=== PATIENT | female | born 1955 | race Caucasian/White ===

== ENCOUNTER → 2017-11-08 | Outpatient (CLI) | payer OTHER | LOC: COL.VAS 13:08 | DX: R06.02 Shortness of breath (principal); F17.200 Nicotine dependence, unspecified, uncomplicated ==

== ENCOUNTER 2017-12-17 06:17 | Day surgery (SDC) | payer OTHER ==
[~2017-12-17] VITALS: Ht 170.2 cm; Wt 151.6 kg
[2017-12-17] MEDS ORDERED: ZANTAC 150150 MG PO (07:28)
[2017-12-17] MEDS ORDERED: LIPITOR 80MG80 MG PO (07:28)
[2017-12-17] MEDS ORDERED: TIAZAC180 MG PO (07:29)
[2017-12-17] MEDS ORDERED: VITAMIN D 50,1.25 MG PO (07:29)
[2017-12-17] MEDS ORDERED: HYZAAR 50-12.1 UDTAB PO (07:30)
[2017-12-17] MEDS ORDERED: COUMADIN 5MG5 MG/TAB PO (07:31)
[2017-12-17] MEDS ORDERED: ATIVAN 1MG T1 MG/TAB PO (07:32)
[2017-12-17] MEDS ORDERED: VITAMIN C500 MG PO (07:32)
[2017-12-17] MEDS ORDERED: ZYRTEC 10MG10 MG PO (07:33)
[2017-12-17] MEDS ORDERED: ACIPHEX20 MG PO (07:33)
[2017-12-17] MEDS ORDERED: FLONASEALLERGY NS (07:34)
[2017-12-17] MEDS ORDERED: SYNTHROID0.05 MG/TA PO (07:34)
[2017-12-17] MEDS ORDERED: PROVENTIL0.09 MG/A1 IH (07:35)
[2017-12-17 07:53] VITALS: BP 121/82; PULSE 80; TEMP 98.5
== END 2017-12-17 10:31 | disposition home or self-care (01) ==
LOC: COL.CAR 06:17
DX: I47.2 Ventricular tachycardia (principal); I48.0 Paroxysmal atrial fibrillation; G47.33 Obstructive sleep apnea (adult) (pediatric); F17.210 Nicotine dependence, cigarettes, uncomplicated; I45.10 Unspecified right bundle-branch block; E78.5 Hyperlipidemia, unspecified; I10 Essential (primary) hypertension; R06.02 Shortness of breath; I49.9 Cardiac arrhythmia, unspecified; Z88.6 Allergy status to analgesic agent; Z88.5 Allergy status to narcotic agent; Z79.01 Long term (current) use of anticoagulants; Z82.49 Family history of ischemic heart disease and other diseases of the circulatory system

== ENCOUNTER 2018-02-01 00:34 | Inpatient (IN) | payer OTHER ==
[~2018-02-01] VITALS: Ht 170.2 cm; Wt 152.0 kg
[2018-02-01] VITALS (422 sets, daily range): BP systolic 103–121; BP diastolic 48–99; PULSE 77–152; TEMP 97.5–98.5; O2SAT 85–98
[~2018-02-01 00:34] MED LIST: ACIPHEX20 MG PO; ATIVAN 1MG T1 MG/TAB PO; COUMADIN 1010 MG/TAB PO; FLONASEALLERGY NS; HYZAAR 50-12.1 UDTAB PO; LIPITOR 80MG80 MG PO; PROVENTIL0.09 MG/A1 IH; SYNTHROID0.05 MG/TA PO; TIAZAC180 MG PO; VITAMIN C500 MG PO; VITAMIN D 50,1.25 MG PO; ZANTAC 150150 MG PO; ZYRTEC 10MG10 MG PO
[2018-02-01] MEDS ORDERED: WELLBUTRIN XL150 MG PO (01:40)
[2018-02-01] MEDS ORDERED: SYNTHROID0.075 MG/T PO (01:52)
[2018-02-01] MEDS ORDERED: TYLENOL 500MG500 MG PO (01:57)
[2018-02-01 06:05] LABS: BASO # 0.1 (0.0-0.2); BASO % 0.6 % (0.0-2.0); EOS # 0.2 (0.0-0.7); EOS % 1.9 % (0-4.0); GRAN # 5.8 (1.4-6.5); GRAN % 57.7 % (42.2-75.2); HEMATOCRIT 43.9 % (37.0-47.0); HEMOGLOBIN 14.4 g/dl (12.5-16.0); LYMPH # 3.1 (1.2-3.4); LYMPH % 30.7 % (20.0-51.0); MEAN CELL VOLUME 89 fl (80.0-100.0); MEAN CORPUSCULAR HEMOGLOBIN 29 pg (27.0-31.0); MEAN CORPUSCULAR HGB CONC 33 g/dl (33.0-37.0); MEAN PLATELET VOLUME 9.3 fl (7.4-10.4); MONO # 0.9 (0.1-0.6); MONO % 8.8 % (1.7-9.3); PLATELET COUNT 232 K/mm3 (130-400); RED BLOOD COUNT 4.91 M/mm3 (4.10-5.30); REDCELL DISTRIBUTION WIDTH-CV 13.8 % (11.5-14.5)
[2018-02-01] MEDS ORDERED: COUMADIN 77.5 MG/TAB PO (06:17)
[2018-02-01 06:22] LABS: ANION GAP 13 mmol/L (7-16); BLOOD UREA NITROGEN 13 mg/dL (7-17); CALCIUM 9.6 mg/dL (8.4-10.2); CARBON DIOXIDE 28 mmol/L (22-30); CHLORIDE 105 mmol/L (98-107); CREATININE, serum 0.72 mg/dL (0.52-1.25); GLUCOSE 113 mg/dL (74-106); SODIUM 146 mmol/L (137-145)
[2018-02-01 06:33] LABS: TROPONIN-I < 0.012 ng/mL (0.000-0.034)
[2018-02-02 03:14] VITALS: BP 134/73; PULSE 65; TEMP 97.6
[2018-02-02 07:28] LABS: INR 3.1 (0.8-3.0); PROTHROMBIN TIME 35.2 SECONDS (9.7-12.8)
[2018-02-02 07:53] VITALS: BP 120/68; PULSE 72; TEMP 97.5
[2018-02-02 12:24] VITALS: BP 108/60; PULSE 70; TEMP 97.4
[2018-02-02] MEDS ORDERED: MULTAQ400 MG PO (12:55)
[2018-02-02] MEDS ORDERED: LEVOXYL0.15 MG PO (12:57)
[2018-02-02 15:50] VITALS: BP 122/80; PULSE 70; TEMP 98.1
== END 2018-02-02 17:30 | disposition home or self-care (01) | DRG 309 ==
LOC: ICU 00:34 → MEDICAL 01:09 → ICU 01:09 → MEDICAL 01:10 → ICU 01:10 → MEDICAL 12:56
PROVIDERS: Nurse Practitioner
PROC: 5A2204Z Restoration of Cardiac Rhythm, Single (ICD-10-PCS; principal; 2018-02-01)
DX: I48.0 Paroxysmal atrial fibrillation (principal); Z68.43 Body mass index [BMI] 50.0-59.9, adult; J96.11 Chronic respiratory failure with hypoxia; I10 Essential (primary) hypertension; J44.9 Chronic obstructive pulmonary disease, unspecified; Z79.01 Long term (current) use of anticoagulants; Z87.891 Personal history of nicotine dependence; G47.33 Obstructive sleep apnea (adult) (pediatric); E66.01 Morbid (severe) obesity due to excess calories
CPT/HCPCS: OP; 99223-AI; 99233-AI; 99239; G0378; G0379; J2704; J7050

== ENCOUNTER 2018-02-13 11:46 | Emergency (ER) | payer OTHER ==
[~2018-02-13] VITALS: Ht 172.7 cm; Wt 150.0 kg
[~2018-02-13 11:46] MED LIST changes: +COUMADIN 77.5 MG/TAB PO; +LEVOXYL0.15 MG PO; +MULTAQ400 MG PO; +SYNTHROID0.075 MG/T PO; +TYLENOL 500MG500 MG PO; +WELLBUTRIN XL150 MG PO
[2018-02-13 11:47] VITALS: TEMP 98.3
[2018-02-13] MEDS ORDERED: COUMADIN 1010 MG/TAB PO (12:17)
[2018-02-13] MEDS ORDERED: COUMADIN 77.5 MG/TAB PO (12:19)
[2018-02-13 12:28] LABS: BASO # 0.1 (0.0-0.2); BASO % 0.8 % (0.0-2.0); EOS # 0.2 (0.0-0.7); EOS % 2.9 % (0-4.0); GRAN # 4.5 (1.4-6.5); GRAN % 59.8 % (42.2-75.2); HEMATOCRIT 40.5 % (37.0-47.0); HEMOGLOBIN 13.4 g/dl (12.5-16.0); LYMPH # 2.1 (1.2-3.4); LYMPH % 27.4 % (20.0-51.0); MEAN CELL VOLUME 89 fl (80.0-100.0); MEAN CORPUSCULAR HEMOGLOBIN 29 pg (27.0-31.0); MEAN CORPUSCULAR HGB CONC 33 g/dl (33.0-37.0); MEAN PLATELET VOLUME 9.6 fl (7.4-10.4); MONO # 0.7 (0.1-0.6); PLATELET COUNT 227 K/mm3 (130-400); RED BLOOD COUNT 4.57 M/mm3 (4.10-5.30); REDCELL DISTRIBUTION WIDTH-CV 13.2 % (11.5-14.5)
[2018-02-13 12:40] LABS: ALANINE AMINOTRANSFERASE 48 U/L (9-52); ALBUMIN 4.1 gm/dL (3.5-5.0); ALKALINE PHOSPHATASE 86 U/L (50-136); ANION GAP 13 mmol/L (7-16); AST,SGOT 38 U/L (15-37); BILIRUBIN,TOTAL 1.2 mg/dL (0.0-1.0); BLOOD UREA NITROGEN 12 mg/dL (7-17); CALCIUM 9.5 mg/dL (8.4-10.2); CARBON DIOXIDE 27 mmol/L (22-30); CHLORIDE 103 mmol/L (98-107); CREATININE, serum 0.72 mg/dL (0.52-1.25); GLUCOSE 147 mg/dL (74-106); POTASSIUM 3.5 mmol/L (3.4-5.0); SODIUM 142 mmol/L (137-145); TOTAL PROTEIN 7.4 gm/dL (6.4-8.2)
[2018-02-13 12:50] LABS: TROPONIN-I < 0.012 ng/mL (0.000-0.034)
[2018-02-13 12:58] LABS: COLLECTION METHOD CLEAN CATCH
[2018-02-13 13:05] LABS: PH 6 (5-8); SQUAMOUS EPITHELIAL 0-2 /hpf; URINE APPEARANCE Clear; URINE BACTERIA None Seen /hpf; URINE BILIRUBIN Negative (NEGATIVE); URINE BLOOD Negative (NEGATIVE); URINE COLOR Yellow; URINE GLUCOSE Negative (NEGATIVE); URINE KETONE Negative (NEGATIVE); URINE LEUKOCYTE ESTERASE Negative (NEGATIVE); URINE NITRATE Negative (NEGATIVE); URINE PROTEIN(semi-quant) Negative (NEGATIVE); URINE RBC 0-2 /hpf; URINE UROBILINOGEN Negative (NEGATIVE)
[2018-02-13 13:07] LABS: INR 2.3 (0.8-3.0); PROTHROMBIN TIME 26.2 SECONDS (9.7-12.8)
[2018-02-13 14:22] LABS: TSH w REFLEX 4.28 uIU/mL (0.465-4.680)
[2018-02-13 14:47] VITALS: BP 107/50; PULSE 65
== END 2018-02-13 14:48 | disposition home or self-care (01) ==
LOC: COL.ER 11:46
PROVIDERS: Emergency Medicine
DX: I48.91 Unspecified atrial fibrillation (principal); J44.9 Chronic obstructive pulmonary disease, unspecified; Z79.01 Long term (current) use of anticoagulants

== ENCOUNTER 2018-04-12 17:40 | Emergency (ER) | payer OTHER ==
[~2018-04-12] VITALS: Ht 172.7 cm; Wt 152.3 kg
[2018-04-12 17:45] VITALS: TEMP 98.9
[2018-04-12 18:04] LABS: BASO % 0.4 % (0.0-2.0); EOS # 0.3 (0.0-0.7); EOS % 2.6 % (0-4.0); GRAN # 6.7 (1.4-6.5); GRAN % 63.9 % (42.2-75.2); HEMOGLOBIN 14.6 g/dl (12.5-16.0); LYMPH # 2.8 (1.2-3.4); LYMPH % 26.3 % (20.0-51.0); MEAN CELL VOLUME 86 fl (80.0-100.0); MEAN CORPUSCULAR HEMOGLOBIN 29 pg (27.0-31.0); MEAN CORPUSCULAR HGB CONC 34 g/dl (33.0-37.0); MEAN PLATELET VOLUME 9.3 fl (7.4-10.4); MONO # 0.7 (0.1-0.6); MONO % 6.7 % (1.7-9.3); PLATELET COUNT 236 K/mm3 (130-400); RED BLOOD COUNT 5.03 M/mm3 (4.10-5.30); REDCELL DISTRIBUTION WIDTH-CV 13.1 % (11.5-14.5)
[2018-04-12 18:08] LABS: INR 1.6 (0.8-3.0); PROTHROMBIN TIME 18.4 SECONDS (9.7-12.8)
[2018-04-12 18:11] LABS: PARTIAL THROMBOPLASTIN TIME 47.7 SECONDS (26.0-37.0)
[2018-04-12 18:21] LABS: ALANINE AMINOTRANSFERASE 38 U/L (9-52); ALBUMIN 4.3 gm/dL (3.5-5.0); ALKALINE PHOSPHATASE 94 U/L (50-136); ANION GAP 12 mmol/L (7-16); AST,SGOT 46 U/L (15-37); BLOOD UREA NITROGEN 12 mg/dL (7-17); CALCIUM 9.7 mg/dL (8.4-10.2); CARBON DIOXIDE 27 mmol/L (22-30); CHLORIDE 101 mmol/L (98-107); CREATININE, serum 0.71 mg/dL (0.52-1.25); GLUCOSE 109 mg/dL (74-106); POTASSIUM 3.7 mmol/L (3.4-5.0); SODIUM 141 mmol/L (137-145); TOTAL PROTEIN 7.6 gm/dL (6.4-8.2)
[2018-04-12 18:40] LABS: TROPONIN-I < 0.012 ng/mL (0.000-0.034)
[2018-04-12 22:10] VITALS: BP 128/87; PULSE 122
== END 2018-04-12 22:00 | disposition short-term general hospital (02) ==
LOC: COL.ER 17:40
PROVIDERS: Family Medicine
DX: I48.91 Unspecified atrial fibrillation (principal); Z79.51 Long term (current) use of inhaled steroids; Z79.02 Long term (current) use of antithrombotics/antiplatelets
CPT/HCPCS: J7030

== ENCOUNTER 2018-09-05 17:54 | Inpatient (IN) | payer OTHER ==
[~2018-09-05] VITALS: Ht 172.7 cm; Wt 152.0 kg
[2018-09-05] VITALS (82 sets, daily range): BP systolic 130; BP diastolic 102; PULSE 135; TEMP 98; O2SAT 92–96
[2018-09-05 18:27] LABS: BASO # 0.1 (0.0-0.2); BASO % 0.6 % (0.0-2.0); EOS # 0.2 (0.0-0.7); GRAN # 6.1 (1.4-6.5); HEMATOCRIT 45.2 % (37.0-47.0); LYMPH # 2.4 (1.2-3.4); LYMPH % 24.9 % (20.0-51.0); MEAN CELL VOLUME 88 fl (80.0-100.0); MEAN CORPUSCULAR HEMOGLOBIN 29 pg (27.0-31.0); MEAN CORPUSCULAR HGB CONC 33 g/dl (33.0-37.0); MEAN PLATELET VOLUME 9.4 fl (7.4-10.4); MONO # 0.7 (0.1-0.6); MONO % 7.3 % (1.7-9.3); PLATELET COUNT 227 K/mm3 (130-400); RED BLOOD COUNT 5.12 M/mm3 (4.10-5.30)
[2018-09-05 18:39] LABS: ALANINE AMINOTRANSFERASE 32 U/L (9-52); ALBUMIN 4.3 gm/dL (3.5-5.0); ALKALINE PHOSPHATASE 106 U/L (50-136); ANION GAP 7 mmol/L (7-16); AST,SGOT 32 U/L (15-37); BILIRUBIN,TOTAL 0.9 mg/dL (0.0-1.0); BLOOD UREA NITROGEN 10 mg/dL (7-17); CALCIUM 9.5 mg/dL (8.4-10.2); CARBON DIOXIDE 32 mmol/L (22-30); CHLORIDE 105 mmol/L (98-107); CREATININE, serum 0.77 mg/dL (0.52-1.25); GLUCOSE 145 mg/dL (74-106); POTASSIUM 3.9 mmol/L (3.4-5.0); SODIUM 144 mmol/L (137-145); TOTAL PROTEIN 7.5 gm/dL (6.4-8.2)
[2018-09-05 18:44] LABS: INR 4.2 (0.8-3.0)
[2018-09-05 18:47] LABS: PROTHROMBIN TIME 47.4 SECONDS (9.7-12.8)
[2018-09-05 18:54] LABS: TROPONIN-I < 0.012 ng/mL (0.000-0.034)
[2018-09-05] MEDS ORDERED: COUMADIN 77.5 MG/TAB PO (18:58)
[2018-09-05] MEDS ORDERED: COUMADIN 5MG5 MG/TAB PO (18:59)
--- NOTE | 2018-09-05 21:13 | NUR ---
Pt admitted to ICU bed 7 from ED at this time. Pt arrived via stretcher and placed on monitoring analyst upon arrival to room. Vitals stable. Ihsan Carson APRN, notified of Pt admission to unit.
[2018-09-05] MEDS ORDERED: SYNTHROID 0.10.15 MG PO (23:39)
[2018-09-05] MEDS ORDERED: TRIAM OI 15 0.025 TOP (23:42)
[2018-09-05] MEDS ORDERED: VOLTAREN GEL 1%1 TU TP (23:43)
[2018-09-06] VITALS (200 sets, daily range): BP systolic 105–160; BP diastolic 54–79; PULSE 60–81; TEMP 97.6–98.7; O2SAT 90–100
--- NOTE | 2018-09-06 00:46 | NUR ---
Pt noted to have increase in PVC et PAC after 15 minutes of decreased cardizem gtt dosage.
--- NOTE | 2018-09-06 00:55 | NUR ---
Admission assessment complete at this time. Plan of care reviewed at bedside with patient. Additional time taken to address any other needs or concerns. Will continue to monitor. Vitals stable.
--- NOTE | 2018-09-06 05:15 | NUR ---
Received report from CAREY Allen in ICU. Patient transferred from ICU to room 342 via wheelchair at 0435. Patient ambulated from wheelchair to bed with standby assist, gait steady. Patient is A&O x 4. VSS. Tele maintained. Denies any pain at this time. Patient had been wearing her CPAP machine while in ICU states that she feels she is up for the morning and doesn't want to wear it anymore tonight. INT to right antecubital. Denies any concerns or needs. Bed is in a low position with call light in reach.
[2018-09-06 06:46] LABS: BASO # 0.1 (0.0-0.2); BASO % 0.6 % (0.0-2.0); EOS # 0.2 (0.0-0.7); EOS % 2.3 % (0-4.0); GRAN # 5.8 (1.4-6.5); GRAN % 60.6 % (42.2-75.2); HEMATOCRIT 40.4 % (37.0-47.0); HEMOGLOBIN 13.3 g/dl (12.5-16.0); LYMPH # 2.7 (1.2-3.4); LYMPH % 27.6 % (20.0-51.0); MEAN CELL VOLUME 88 fl (80.0-100.0); MEAN CORPUSCULAR HEMOGLOBIN 29 pg (27.0-31.0); MEAN CORPUSCULAR HGB CONC 33 g/dl (33.0-37.0); MEAN PLATELET VOLUME 9.2 fl (7.4-10.4); MONO # 0.8 (0.1-0.6); MONO % 8.6 % (1.7-9.3); PLATELET COUNT 216 K/mm3 (130-400); RED BLOOD COUNT 4.57 M/mm3 (4.10-5.30); REDCELL DISTRIBUTION WIDTH-CV 13.4 % (11.5-14.5)
[2018-09-06 06:54] LABS: CALCIUM 9.2 mg/dL (8.4-10.2); CREATININE, serum 0.63 mg/dL (0.52-1.25); POTASSIUM 3.8 mmol/L (3.4-5.0)
[2018-09-06 07:09] LABS: INR 3.1 (0.8-3.0); PROTHROMBIN TIME 35.7 SECONDS (9.7-12.8)
--- NOTE | 2018-09-06 07:23 | NUR ---
Bedside report from CAREY Smith. Pt sitting up in bed HOB at 90*, eating breakfast. TELE in place. Pt states she has severe arthritic pain in hands and wrists, she takes tylenol ES at home, and multaq at home- will follow up with hospitalist. Pt A&O, pleasant, no acute distress. Denies dizziness.
--- NOTE | 2018-09-06 08:40 | NUR ---
Pt called concerned about her heart, "feels like it's about to jump out of my chest," and it felt the same as it did when she was on the phone with her sister when this all started yesterday. Pt amb to BR independently, reached for doorway to steady herself. See VS. Tele showed run of irregularity.
--- NOTE | 2018-09-06 11:18 | NUR ---
Initial visit; Patient was receptive to Haul Cane Brakeman visit and offering her comfort and God's blessings.
--- NOTE | 2018-09-06 11:31 | NUR ---
SW attended clinical rounding and met with patient to discuss discharge planning. Patient is independent and lives at home with her who she is caregiver for. Patients PCP is Dr Ras Solis and she obtains her medications on . Patient has o2 at home. There are no anticipated discharge needs at this time.
[2018-09-06] MEDS ORDERED: COUMADIN 77.5 MG/TAB PO (12:35)
--- NOTE | 2018-09-06 14:10 | NUR ---
Discharge instructions reviewed with pt and family.
--- NOTE | 2018-09-06 14:25 | NUR ---
Printed Pt health summary, discharge summary, and home med list and reviewed with pt with son present. Stressed importance of f/u appts, pt states she will re-schedule her cardiology appt. Stressed importance of obtaining labs prior to PCP appt. Pt states she has 5 mg coumadin at home to take 7.5 mg as ordered. Belongings gathered by pt and family, including cell phone and necklace and glasses in place. Pt transported via by THOMAS Morris for ride home. Pt denied questions. INT DC'd.
== END 2018-09-06 14:29 | disposition home or self-care (01) | DRG 309 ==
LOC: COL.ER 17:54 → ICU 19:21 → SURG 19:21
PROVIDERS: Emergency Medicine; Nurse Practitioner; ADMIT Internal Medicine
DX: I48.0 Paroxysmal atrial fibrillation (principal); Z68.43 Body mass index [BMI] 50.0-59.9, adult; J44.9 Chronic obstructive pulmonary disease, unspecified; E66.01 Morbid (severe) obesity due to excess calories; E78.5 Hyperlipidemia, unspecified; I10 Essential (primary) hypertension; Z79.01 Long term (current) use of anticoagulants; Z87.891 Personal history of nicotine dependence; G47.33 Obstructive sleep apnea (adult) (pediatric)
CPT/HCPCS: J7030

== ENCOUNTER 2018-11-11 18:22 | Emergency (ER) | payer OTHER ==
[~2018-11-11] VITALS: Ht 172.7 cm; Wt 152.3 kg
[~2018-11-11 18:22] MED LIST changes: +COUMADIN 5MG5 MG/TAB PO; +SYNTHROID 0.10.15 MG PO; +TRIAM OI 15 0.025 TOP; +VOLTAREN GEL 1%1 TU TP
[2018-11-11 19:00] VITALS: TEMP 98.2
[2018-11-11] MEDS ORDERED: SYNTHROID0.175 MG PO (19:35)
[2018-11-11] MEDS ORDERED: TIAZAC240 MG PO (19:36)
[2018-11-11 19:39] LABS: BASO # 0.1 (0.0-0.2); BASO % 0.5 % (0.0-2.0); EOS # 0.2 (0.0-0.7); EOS % 1.9 % (0-4.0); GRAN % 64.6 % (42.2-75.2); HEMATOCRIT 43.2 % (37.0-47.0); HEMOGLOBIN 14.4 g/dl (12.5-16.0); LYMPH # 2.7 (1.2-3.4); LYMPH % 25.1 % (20.0-51.0); MEAN CELL VOLUME 87 fl (80.0-100.0); MEAN CORPUSCULAR HEMOGLOBIN 29 pg (27.0-31.0); MEAN CORPUSCULAR HGB CONC 33 g/dl (33.0-37.0); MEAN PLATELET VOLUME 9.1 fl (7.4-10.4); MONO # 0.8 (0.1-0.6); MONO % 7.7 % (1.7-9.3); PLATELET COUNT 242 K/mm3 (130-400); RED BLOOD COUNT 4.99 M/mm3 (4.10-5.30); REDCELL DISTRIBUTION WIDTH-CV 13.4 % (11.5-14.5)
[2018-11-11 19:49] LABS: ALANINE AMINOTRANSFERASE 40 U/L (9-52); ALBUMIN 4.3 gm/dL (3.5-5.0); ALKALINE PHOSPHATASE 103 U/L (50-136); ANION GAP 8 mmol/L (7-16); AST,SGOT 33 U/L (15-37); BLOOD UREA NITROGEN 13 mg/dL (7-17); CALCIUM 9.6 mg/dL (8.4-10.2); CARBON DIOXIDE 27 mmol/L (22-30); CHLORIDE 104 mmol/L (98-107); CREATININE, serum 0.69 mg/dL (0.52-1.25); GLUCOSE 110 mg/dL (74-106); MAGNESIUM 2.1 mg/dL (1.6-2.3); POTASSIUM 3.8 mmol/L (3.4-5.0); SODIUM 140 mmol/L (137-145); TOTAL PROTEIN 7.5 gm/dL (6.4-8.2)
[2018-11-11 20:00] LABS: TROPONIN-I < 0.012 ng/mL (0.000-0.035)
[2018-11-11 20:16] LABS: INR 2.7 (0.8-3.0); PROTHROMBIN TIME 30.9 SECONDS (9.7-12.8)
[2018-11-11 20:35] VITALS: BP 118/64; PULSE 86
== END 2018-11-11 20:35 | disposition home or self-care (01) ==
LOC: COL.ER 18:22
PROVIDERS: Emergency Medicine
DX: I48.0 Paroxysmal atrial fibrillation (principal); I10 Essential (primary) hypertension; E66.9 Obesity, unspecified; J44.9 Chronic obstructive pulmonary disease, unspecified; Z79.01 Long term (current) use of anticoagulants

== ENCOUNTER 2018-11-18 14:54 | Emergency (ER) | payer OTHER ==
[~2018-11-18] VITALS: Ht 172.7 cm; Wt 155.5 kg
[~2018-11-18 14:54] MED LIST changes: +SYNTHROID0.175 MG PO; +TIAZAC240 MG PO
[2018-11-18 14:58] VITALS: TEMP 98.7
[2018-11-18 15:28] LABS: BASO # 0.1 (0.0-0.2); BASO % 0.6 % (0.0-2.0); EOS # 0.2 (0.0-0.7); GRAN # 6.9 (1.4-6.5); GRAN % 65.8 % (42.2-75.2); HEMOGLOBIN 15.1 g/dl (12.5-16.0); LYMPH # 2.5 (1.2-3.4); LYMPH % 23.4 % (20.0-51.0); MEAN CELL VOLUME 88 fl (80.0-100.0); MEAN CORPUSCULAR HEMOGLOBIN 29 pg (27.0-31.0); MEAN CORPUSCULAR HGB CONC 34 g/dl (33.0-37.0); MEAN PLATELET VOLUME 9.6 fl (7.4-10.4); MONO # 0.8 (0.1-0.6); MONO % 7.9 % (1.7-9.3); PLATELET COUNT 258 K/mm3 (130-400); RED BLOOD COUNT 5.14 M/mm3 (4.10-5.30); REDCELL DISTRIBUTION WIDTH-CV 13.5 % (11.5-14.5)
[2018-11-18 15:30] LABS: ALANINE AMINOTRANSFERASE 35 U/L (9-52); ALBUMIN 4.5 gm/dL (3.5-5.0); ALKALINE PHOSPHATASE 119 U/L (50-136); ANION GAP 9 mmol/L (7-16); AST,SGOT 43 U/L (15-37); BILIRUBIN,TOTAL 1.4 mg/dL (0.0-1.0); BLOOD UREA NITROGEN 13 mg/dL (7-17); CALCIUM 9.9 mg/dL (8.4-10.2); CARBON DIOXIDE 29 mmol/L (22-30); CHLORIDE 105 mmol/L (98-107); CREATININE, serum 0.83 mg/dL (0.52-1.25); GLUCOSE 124 mg/dL (74-106); INR 2.7 (0.8-3.0); POTASSIUM 3.5 mmol/L (3.4-5.0); PROTHROMBIN TIME 30.5 SECONDS (9.7-12.8); SODIUM 144 mmol/L (137-145)
[2018-11-18 15:47] LABS: TROPONIN-I < 0.012 ng/mL (0.000-0.035)
[2018-11-18 17:52] VITALS: BP 131/61; PULSE 87
== END 2018-11-18 17:52 | disposition home or self-care (01) ==
LOC: COL.ER 14:54
PROVIDERS: Family Medicine
DX: I48.91 Unspecified atrial fibrillation (principal); I48.92 Unspecified atrial flutter; Z79.01 Long term (current) use of anticoagulants; K52.9 Noninfective gastroenteritis and colitis, unspecified; Z79.51 Long term (current) use of inhaled steroids
CPT/HCPCS: J2060

== ENCOUNTER 2018-11-19 11:07 | Inpatient (IN) | payer OTHER ==
[~2018-11-19] VITALS: Ht 172.7 cm; Wt 138.2 kg
[2018-11-22 08:50] LABS: HEMATOCRIT 41.1 % (37.0-47.0); HEMOGLOBIN 13.8 g/dl (12.5-16.0); MEAN CELL VOLUME 88 fl (80.0-100.0); MEAN CORPUSCULAR HEMOGLOBIN 30 pg (27.0-31.0); MEAN CORPUSCULAR HGB CONC 34 g/dl (33.0-37.0); MEAN PLATELET VOLUME 9.5 fl (7.4-10.4); PLATELET COUNT 241 K/mm3 (130-400); RED BLOOD COUNT 4.68 M/mm3 (4.10-5.30); REDCELL DISTRIBUTION WIDTH-CV 13.5 % (11.5-14.5)
[2018-11-22 08:53] LABS: INR 2.5 (0.8-3.0); PROTHROMBIN TIME 28.4 SECONDS (9.7-12.8)
[2018-11-22 08:55] LABS: ALBUMIN 4.5 gm/dL (3.5-5.0); BILIRUBIN,TOTAL 1.2 mg/dL (0.0-1.0); CALCIUM 9.9 mg/dL (8.4-10.2); CREATININE, serum 0.8 mg/dL (0.52-1.25); MAGNESIUM 1.9 mg/dL (1.6-2.3); POTASSIUM 4.1 mmol/L (3.4-5.0); TOTAL PROTEIN 7.7 gm/dL (6.4-8.2)
[2018-11-22 09:23] VITALS: BP 125/57; PULSE 93; TEMP 97.8
--- NOTE | 2018-11-22 09:55 | NUR ---
Admission assessment completed, alert/oriented, vital signs stable, heart irregular/ A.fib on tele rated controlled in the 70's, EKG done and Qtc WNL, denies any chest pain or palpitations, lungs CTA/ no resp.difficulty noted, distal pulses are palpable, home meds reconciled, IV started to right AC, aware of patients arrival, she is independent and dneies other needs at this time, will admnister first dose of Sotalol
--- NOTE | 2018-11-22 10:42 | NUR ---
SW met with the patient to discuss discharge plan. The patient lives in [place] with her , Ulices. She reports independence with ADLs and does not use any DME. The patient's PCP is Dr. Ras Solis and she receives her medications through [facility]. She reports no difficulties obtaining her meds. The patient does not have advanced directives and she was not interested in completing them at this time. The patient plans to return home with her upon discharge. No additional needs at this time.
[2018-11-22 14:03] VITALS: BP 112/55; PULSE 58; TEMP 97.6
[2018-11-22 20:00] VITALS: BP 102/44; PULSE 54; TEMP 97.6
--- NOTE | 2018-11-22 21:20 | NUR ---
PT AMBULATES IN ROOM, AND IS INDEPENDENT. PT WEARS CPA TO BED, HOB ELEVATED TO 60 DEGREE ANGLE. PT HAS PAIN IN HANDS THAT IS SHARP AND ACHING RATED AT A 8/10 FROM ARTHITIS. PT WAS GIVEN TYLENOL FOR PAIN. PT HAS NO FURTHER NEEDS CALL LIGHT WITHIN REACH.
[2018-11-23] VITALS (7 sets, daily range): BP systolic 90–120; BP diastolic 40–63; PULSE 49–61; TEMP 97.5–98.2
--- NOTE | 2018-11-23 03:48 | NUR ---
UNEVENTFUL NIGHT. PT SLEEPING/RESTING WITH CPAP ON, RESP EVEN AND UNLABORED, AND NO S/S OF PAIN OR DISCOMFORT. CALL LIGHT WITHIN REACH. EARLIER IN SHIFT PT WAS CONCERNED DUE TO NOT GETTING HER COUMADIN. CALL DR. MANZANARES CARDIOLIGIST. DR. MANZANARES ADVISED THAT IT WILL NOT MAKE A DIFFERENT IF SHE DID NOT GET IT THIS EVENING OR TOMORROW MORNING AND NOT TO BE CONCERNED WITH IT NOW. ADVISED PT OF WHAT DR. MANZANARES ADVISED.
--- NOTE | 2018-11-23 09:25 | NUR ---
Patient resting in bed this AM. Telemetry on with SR BBB. A rate of 60 this AM. Patient is very concerned as her pulse and blood pressure are very low for her. She is not having any s/s related to low pressure/pulse. Dr. Batista called to address pulse/blood pressure prior to giving Sotalol this AM per patient request
[2018-11-23 10:25] LABS: BASO # 0.1 (0.0-0.2); BASO % 0.8 % (0.0-2.0); EOS # 0.2 (0.0-0.7); EOS % 3.3 % (0-4.0); GRAN # 3.8 (1.4-6.5); GRAN % 57.8 % (42.2-75.2); HEMATOCRIT 40.6 % (37.0-47.0); LYMPH # 2.1 (1.2-3.4); LYMPH % 31.1 % (20.0-51.0); MEAN CELL VOLUME 89 fl (80.0-100.0); MEAN CORPUSCULAR HEMOGLOBIN 29 pg (27.0-31.0); MEAN CORPUSCULAR HGB CONC 32 g/dl (33.0-37.0); MEAN PLATELET VOLUME 9.9 fl (7.4-10.4); MONO # 0.5 (0.1-0.6); MONO % 6.8 % (1.7-9.3); PLATELET COUNT 215 K/mm3 (130-400); RED BLOOD COUNT 4.54 M/mm3 (4.10-5.30); REDCELL DISTRIBUTION WIDTH-CV 13.6 % (11.5-14.5)
[2018-11-23 10:30] LABS: INR 2.4 (0.8-3.0)
[2018-11-23 10:46] LABS: CALCIUM 9.5 mg/dL (8.4-10.2); CREATININE, serum 0.69 mg/dL (0.52-1.25); MAGNESIUM 1.9 mg/dL (1.6-2.3); POTASSIUM 3.8 mmol/L (3.4-5.0)
--- NOTE | 2018-11-23 14:30 | NUR ---
Patient c/o arthritis in hand causing pain. Tylenol 650 mg given for discomfort. No other needs at this time
--- NOTE | 2018-11-23 18:25 | NUR ---
Patient remains on tele. No other concerns. Hands continue to hurt; giving Tylenol PRN
--- NOTE | 2018-11-23 19:47 | NUR ---
PT HAS BEEN AMBULATING IN ROOM. HAS BEEN UP TO BATHROOM AND BACK TO BED. PT HAS PAIN IN HANDS RATED AT 5/10. NO FURTHER NEEDS, CALL LIGHT WITHIN REACH.
--- NOTE | 2018-11-24 02:01 | NUR ---
GAVE PT TYLENOL FOR PAIN IN HANDS RATED AT AN 8/10. PT ALSO RECEIVED ATIVAN TO HELP WITH SLEEP. PT ADVISED THAT DR. CASTELAN STATED THAT IT WAS OKAY THAT HER PULSE WAS BETWEEN HIGH 40S AND LOW 50S. NO OTHER NEEDS CALL LIGHT WITHIN REACH.
[2018-11-24 03:59] VITALS: BP 125/52; PULSE 47
--- NOTE | 2018-11-24 05:11 | NUR ---
PT SLEEP/RESTING WITH CPAP ON. PT HAD PAIN IN HANDS THAT WOKE HER UP BUT AFTER GETTING TYLENOL AND ATIVAN, SHE IS NOW SLEEPING/RESTING WELL. DENIES PAIN OR DISCOMFORT AND RESP ARE EVEN AND UNLABORED. CALL LIGHT WITHIN REACH.
--- NOTE | 2018-11-24 05:19 | NUR ---
TELEY CALLED AND ADVISED THAT PT'S HEART RATE WENT DOWN TO 38 AND THEN BACK UP TO 45.
[2018-11-24 07:44] VITALS: BP 112/60; PULSE 58; TEMP 97.4
--- NOTE | 2018-11-24 09:25 | NUR ---
PATIENT ASSESSMENT COMPETED. BREAKFAST COMPLETE. SHE DENIES PAIN OR OTHER CONCERNS AT THIS TIME.
[2018-11-24 10:58] LABS: BASO # 0.1 (0.0-0.2); BASO % 0.7 % (0.0-2.0); EOS # 0.2 (0.0-0.7); EOS % 3.1 % (0-4.0); GRAN # 4.5 (1.4-6.5); GRAN % 59.6 % (42.2-75.2); HEMATOCRIT 41.9 % (37.0-47.0); HEMOGLOBIN 13.9 g/dl (12.5-16.0); LYMPH # 2.1 (1.2-3.4); LYMPH % 27.8 % (20.0-51.0); MEAN CELL VOLUME 88 fl (80.0-100.0); MEAN CORPUSCULAR HEMOGLOBIN 29 pg (27.0-31.0); MEAN CORPUSCULAR HGB CONC 33 g/dl (33.0-37.0); MEAN PLATELET VOLUME 9.8 fl (7.4-10.4); MONO # 0.7 (0.1-0.6); MONO % 8.5 % (1.7-9.3); PLATELET COUNT 214 K/mm3 (130-400); RED BLOOD COUNT 4.78 M/mm3 (4.10-5.30); REDCELL DISTRIBUTION WIDTH-CV 13.5 % (11.5-14.5)
--- NOTE | 2018-11-24 11:00 | NUR ---
PATIENT IV REMOVED FOR HER TO GET IN THE SHOWER. SHE TOLERATES WELL AND CATHETER IS INTACT. SHE IS INDEPENDENT WITH THE SHOWER.
[2018-11-24] MEDS ORDERED: BETAPACE 80MG80 MG PO (11:04)
[2018-11-24 11:08] LABS: INR 1.7 (0.8-3.0); PROTHROMBIN TIME 19.7 SECONDS (9.7-12.8)
[2018-11-24 11:15] LABS: CALCIUM 9.7 mg/dL (8.4-10.2); CREATININE, serum 0.69 mg/dL (0.52-1.25); MAGNESIUM 1.9 mg/dL (1.6-2.3); POTASSIUM 3.6 mmol/L (3.4-5.0)
--- NOTE | 2018-11-24 12:10 | NUR ---
PATIENT DISCHARGE INFORMATION REVIEWED WITH PATIENT. SHE DENIES OTHER NEEDS. ONE MONTH PRESCRIPTION FOR SOTOLAL WITH GIVEN ALONG WITH ONE SENT TO [facility]. HOME PRESCRIPTIONS WERE SENT HOME WITH PATIENT. FRIEND HERE TO OLERICULTURE TEACHER PATIENT DISCHARGED VIA WHEELCHAIR.
== END 2018-11-24 12:20 | disposition home or self-care (01) | DRG 310 ==
LOC: MEDICAL 11-22 08:15
PROVIDERS: Nurse Practitioner; ADMIT Internal Medicine Cardiovascular Disease
DX: I48.0 Paroxysmal atrial fibrillation (principal); J44.9 Chronic obstructive pulmonary disease, unspecified; I10 Essential (primary) hypertension; E78.5 Hyperlipidemia, unspecified; G47.33 Obstructive sleep apnea (adult) (pediatric)

== ENCOUNTER 2019-07-12 03:40 | Inpatient (IN) | payer OTHER ==
[~2019-07-12] VITALS: Ht 170.2 cm; Wt 150.0 kg
[~2019-07-12 03:40] MED LIST changes: +BETAPACE 80MG80 MG PO
[2019-07-12 04:04] LABS: BASO % 0.5 % (0.0-2.0); EOS # 0.3 (0.0-0.7); GRAN % 59.7 % (42.2-75.2); HEMATOCRIT 45.5 % (37.0-47.0); HEMOGLOBIN 15.3 g/dl (12.5-16.0); LYMPH # 2.4 (1.2-3.4); LYMPH % 28.3 % (20.0-51.0); MEAN CELL VOLUME 89 fl (80.0-100.0); MEAN CORPUSCULAR HEMOGLOBIN 30 pg (27.0-31.0); MEAN CORPUSCULAR HGB CONC 34 g/dl (33.0-37.0); MEAN PLATELET VOLUME 9.3 fl (7.4-10.4); MONO # 0.7 (0.1-0.6); MONO % 8.4 % (1.7-9.3); PLATELET COUNT 213 K/mm3 (130-400); RED BLOOD COUNT 5.12 M/mm3 (4.10-5.30); REDCELL DISTRIBUTION WIDTH-CV 13.1 % (11.5-14.5)
[2019-07-12 04:10] LABS: PROTHROMBIN TIME 24.4 SECONDS (9.7-12.8)
[2019-07-12 04:16] LABS: ALANINE AMINOTRANSFERASE 33 U/L (9-52); ALBUMIN 4.4 gm/dL (3.5-5.0); ALKALINE PHOSPHATASE 103 U/L (50-136); ANION GAP 8 mmol/L (7-16); AST,SGOT 34 U/L (15-37); BILIRUBIN,TOTAL 1.3 mg/dL (0.0-1.0); BLOOD UREA NITROGEN 10 mg/dL (7-17); CALCIUM 9.9 mg/dL (8.4-10.2); CARBON DIOXIDE 27 mmol/L (22-30); CHLORIDE 105 mmol/L (98-107); CREATININE, serum 0.59 (0.52-1.25); GLUCOSE 145 mg/dL (74-106); SODIUM 141 mmol/L (137-145); TOTAL PROTEIN 7.6 gm/dL (6.4-8.2)
[2019-07-12 04:20] LABS: MAGNESIUM 1.8 mg/dL (1.6-2.3)
[2019-07-12 04:27] LABS: TROPONIN-I < 0.012 ng/mL (0.000-0.035)
[2019-07-12] MEDS ORDERED: FLONASEALLERGY NS (05:48)
[2019-07-12] MEDS ORDERED: COUMADIN 5MG5 MG/TAB PO ×2 (05:50→05:51)
[2019-07-12] MEDS ORDERED: SYNTHROID0.175 MG PO (05:53)
[2019-07-12] MEDS ORDERED: TYLENOL 8 HR PO (05:55)
[2019-07-12] MEDS ORDERED: FLEXERIL 1010 MG/TAB PO (05:56)
--- NOTE | 2019-07-12 06:15 | NUR ---
PT ADMITTED FROM ED WITH AFIB RVR. PT TRANSFERED TO BED. PT IS AXOX3. PT IS AFIB ON TELE. PT HAS DILT DRIP AT 10ML/HR AND NS AT 125. PT ORIENTED TO ROOM AND FLOOR. PT INSTRUCTED TO CALL [facility] ANY CP OR SOB. WILL CONTINUE TO MONITOR.
[2019-07-12 06:48] LABS: TSH w REFLEX 2.91 uIU/mL (0.465-4.680)
--- NOTE | 2019-07-12 07:30 | NUR ---
PT A&O X4. PT DENIES PAIN. NO EDEMA IN EXTREMITIES.
--- NOTE | 2019-07-12 09:20 | NUR ---
AT APPROXIMATELY PT CONVERTED TO SR. VSS.
--- NOTE | 2019-07-12 11:16 | NUR ---
Met with patient about DC plan. Patient plans to return home with her DTR in-law as care support (Sarah Cole) Patient reports that she is the primary care support for her . Patient reports that use of a cane, cpap with 02 con at 2 liters at night service from [facility]. DTR to transport patient home. [place] Hernandez Melissa [place] [facility] [place] Patient obtains medications at [facility]. Patient denies the need for home health or additional care concerns.
[2019-07-12 12:00] VITALS: PULSE 68
[2019-07-12] MEDS ORDERED: BETAPACE 120MG120 MG PO (13:08)
[2019-07-12 16:00] VITALS: BP 149/67; PULSE 77; TEMP 98
--- NOTE | 2019-07-12 16:35 | NUR ---
PT DISCHARGED. PT ESCORTED OUT ICU VIA WC WITH SON AND PERSONAL BELONGINGS. PT ASSISTED INTO POV.
== END 2019-07-12 16:35 | disposition home or self-care (01) | DRG 309 ==
LOC: COL.ER 03:40 → IMCU 05:08
PROVIDERS: Emergency Medicine; Nurse Practitioner Family; ADMIT Student in an Organized Health Care Education/Training Program
DX: I48.0 Paroxysmal atrial fibrillation (principal); Z68.42 Body mass index [BMI] 45.0-49.9, adult; I10 Essential (primary) hypertension; E78.5 Hyperlipidemia, unspecified; E66.01 Morbid (severe) obesity due to excess calories; G47.33 Obstructive sleep apnea (adult) (pediatric); J44.9 Chronic obstructive pulmonary disease, unspecified; E03.9 Hypothyroidism, unspecified; Z79.01 Long term (current) use of anticoagulants; Z90.49 Acquired absence of other specified parts of digestive tract
CPT/HCPCS: 99222-AI; J7030

== ENCOUNTER 2020-07-16 23:00 | Observation (INO) | payer OTHER ==
[~2020-07-16] VITALS: Ht 152.4 cm; Wt 319.0 kg
[~2020-07-16 23:00] MED LIST changes: +BETAPACE 120MG120 MG PO; +FLEXERIL 1010 MG/TAB PO; +TYLENOL 8 HR PO
[2020-07-16 23:20] LABS: BASO % 0.4 % (0.0-2.0); EOS # 0.3 (0.0-0.7); EOS % 2.6 % (0-4.0); GRAN # 5.5 (1.4-6.5); GRAN % 58.1 % (42.2-75.2); HEMATOCRIT 45.1 % (37.0-47.0); HEMOGLOBIN 15.3 g/dl (12.5-16.0); LYMPH # 2.8 (1.2-3.4); MEAN CELL VOLUME 88 fl (80.0-100.0); MEAN CORPUSCULAR HEMOGLOBIN 30 pg (27.0-31.0); MEAN CORPUSCULAR HGB CONC 34 g/dl (33.0-37.0); MEAN PLATELET VOLUME 9.7 fl (7.4-10.4); MONO # 0.8 (0.1-0.6); MONO % 8.6 % (1.7-9.3); PLATELET COUNT 236 K/mm3 (130-400); RED BLOOD COUNT 5.13 M/mm3 (4.10-5.30); REDCELL DISTRIBUTION WIDTH-CV 12.9 % (11.5-14.5)
[2020-07-16 23:28] LABS: ALANINE AMINOTRANSFERASE 28 U/L (4-34); ALBUMIN 4.7 gm/dL (3.5-5.0); ALKALINE PHOSPHATASE 117 U/L (50-136); ANION GAP 9 mmol/L (7-16); AST,SGOT 30 U/L (15-37); BILIRUBIN,TOTAL 1.1 mg/dL (0.0-1.0); BLOOD UREA NITROGEN 12 mg/dL (7-17); CALCIUM 10.2 mg/dL (8.4-10.2); CARBON DIOXIDE 29 mmol/L (22-30); CHLORIDE 102 mmol/L (98-107); CREATININE, serum 0.65 (0.52-1.25); GLUCOSE 121 mg/dL (74-106); MAGNESIUM 1.9 mg/dL (1.6-2.3); POTASSIUM 3.9 mmol/L (3.4-5.0); SODIUM 141 mmol/L (137-145)
[2020-07-16 23:37] LABS: INR 2.4 (0.8-3.0)
[2020-07-17] VITALS (58 sets, daily range): BP systolic 140–144; BP diastolic 78–87; PULSE 55–58; TEMP 97.5; O2SAT 96–100
[2020-07-17 00:26] LABS: TROPONIN-I < 0.012 ng/mL (0.000-0.035)
--- NOTE | 2020-07-17 08:00 | NUR ---
Admit from ED via stretcher with RN at side. Cardizem infusing at 5mg/hr. Stands and transfers to bed with SBA. Ambulates to toilet without assistance. Monitors applied and orient to room. Wallet sent to [facility] with Renae Portillo RN, HS.
--- NOTE | 2020-07-17 08:12 | NUR ---
Notified by MT that patient had converted to SB, confirmed with EKG.
--- NOTE | 2020-07-17 09:50 | NUR ---
Hospitalist and Cardiology here for rounds, both agree patient can discharge.
[2020-07-17] MEDS ORDERED: CALCIUM CITRAT200 M2 PO (10:37)
[2020-07-17] MEDS ORDERED: VITAMIN D31000 I1 PO (10:38)
[2020-07-17] MEDS ORDERED: BETAPACE 120MG120 MG PO (10:45)
[2020-07-17] MEDS ORDERED: ELIQUIS 5MG PO (10:45)
--- NOTE | 2020-07-17 12:55 | NUR ---
Discharged via wheelchair to POV with friend driving. All belongings sent with patient, including wallet that went to safe.
== END 2020-07-17 12:55 | disposition home or self-care (01) ==
LOC: COL.ER 23:00 → ICU 07-17 03:46
PROVIDERS: Emergency Medicine; ADMIT Student in an Organized Health Care Education/Training Program
DX: I48.91 Unspecified atrial fibrillation (principal); I10 Essential (primary) hypertension; E78.5 Hyperlipidemia, unspecified; G47.33 Obstructive sleep apnea (adult) (pediatric); E66.01 Morbid (severe) obesity due to excess calories; J44.9 Chronic obstructive pulmonary disease, unspecified; E03.9 Hypothyroidism, unspecified; K21.9 Gastro-esophageal reflux disease without esophagitis; I48.0 Paroxysmal atrial fibrillation; I47.2 Ventricular tachycardia; Z90.49 Acquired absence of other specified parts of digestive tract; Z79.01 Long term (current) use of anticoagulants; Z79.52 Long term (current) use of systemic steroids; Z88.5 Allergy status to narcotic agent; Z88.8 Allergy status to other drugs, medicaments and biological substances; Z87.891 Personal history of nicotine dependence
CPT/HCPCS: G0378; J7030

== ENCOUNTER 2020-09-05 22:13 | Emergency (ER) | payer MEDICARE, OTHER ==
[~2020-09-05] VITALS: Ht 172.7 cm; Wt 150.0 kg
[~2020-09-05 22:13] MED LIST changes: +CALCIUM CITRAT200 M2 PO; +ELIQUIS 5MG PO; +VITAMIN D31000 I1 PO
[2020-09-05] MEDS ORDERED: HCTZ12.5TAB PO (22:25)
[2020-09-05] MEDS ORDERED: COZAAR 50MG50 MG/TAB PO (22:25)
[2020-09-05] MEDS ORDERED: ROBAXIN 50500 MG/TAB PO (22:27)
[2020-09-05 22:31] LABS: BASO # 0.1 (0.0-0.2); BASO % 0.5 % (0.0-2.0); EOS # 0.3 (0.0-0.7); EOS % 3.1 % (0-4.0); GRAN # 6.6 (1.4-6.5); GRAN % 66.3 % (42.2-75.2); HEMATOCRIT 43.7 % (37.0-47.0); HEMOGLOBIN 14.5 g/dl (12.5-16.0); LYMPH # 2.1 (1.2-3.4); LYMPH % 21.4 % (20.0-51.0); MEAN CELL VOLUME 90 fl (80.0-100.0); MEAN CORPUSCULAR HEMOGLOBIN 30 pg (27.0-31.0); MEAN CORPUSCULAR HGB CONC 33 g/dl (33.0-37.0); MEAN PLATELET VOLUME 9.4 fl (7.4-10.4); MONO # 0.8 (0.1-0.6); MONO % 8.5 % (1.7-9.3); PLATELET COUNT 221 K/mm3 (130-400); RED BLOOD COUNT 4.88 M/mm3 (4.10-5.30); REDCELL DISTRIBUTION WIDTH-CV 13.2 % (11.5-14.5)
[2020-09-05 22:36] LABS: INR 1.2 (0.8-3.0); PROTHROMBIN TIME 13.4 SECONDS (9.7-12.8)
[2020-09-05 22:38] LABS: PARTIAL THROMBOPLASTIN TIME 39.4 SECONDS (26.0-37.0)
[2020-09-05 22:39] LABS: ALBUMIN 4.5 gm/dL (3.5-5.0); BILIRUBIN,TOTAL 1.4 mg/dL (0.0-1.0); CALCIUM 9.8 mg/dL (8.4-10.2); CREATININE, serum 0.75 (0.52-1.25); POTASSIUM 3.7 mmol/L (3.4-5.0); TOTAL PROTEIN 7.5 gm/dL (6.4-8.2)
[2020-09-06 00:50] VITALS: BP 109/60; PULSE 66
== END 2020-09-06 01:12 | disposition home or self-care (01) ==
LOC: COL.ER 22:13
PROVIDERS: Emergency Medicine
DX: I48.92 Unspecified atrial flutter (principal); R07.89 Other chest pain; I10 Essential (primary) hypertension; E66.01 Morbid (severe) obesity due to excess calories; Z79.01 Long term (current) use of anticoagulants; Z88.6 Allergy status to analgesic agent; Z88.8 Allergy status to other drugs, medicaments and biological substances; Z87.891 Personal history of nicotine dependence
CPT/HCPCS: J2704; J7030

== ENCOUNTER 2021-02-19 02:30 | Emergency (ER) | payer MEDICARE, OTHER ==
[~2021-02-19] VITALS: Ht 172.7 cm; Wt 159.1 kg
[~2021-02-19 02:30] MED LIST changes: +COZAAR 50MG50 MG/TAB PO; +HCTZ12.5TAB PO; +ROBAXIN 50500 MG/TAB PO
[2021-02-19 02:34] VITALS: TEMP 97.9
[2021-02-19 03:33] LABS: COLLECTION METHOD CLEAN CATCH
[2021-02-19 03:39] LABS: BASO % 0.4 % (0.0-2.0); EOS # 0.3 (0.0-0.7); EOS % 3.4 % (0-4.0); GRAN # 5.8 (1.4-6.5); GRAN % 70.5 % (42.2-75.2); HEMATOCRIT 40.8 % (37.0-47.0); HEMOGLOBIN 13.6 g/dl (12.5-16.0); LYMPH # 1.5 (1.2-3.4); LYMPH % 18.6 % (20.0-51.0); MEAN CELL VOLUME 90 fl (80.0-100.0); MEAN CORPUSCULAR HEMOGLOBIN 30 pg (27.0-31.0); MEAN CORPUSCULAR HGB CONC 33 g/dl (33.0-37.0); MONO # 0.6 (0.1-0.6); PLATELET COUNT 172 K/mm3 (130-400); RED BLOOD COUNT 4.56 M/mm3 (4.10-5.30); REDCELL DISTRIBUTION WIDTH-CV 12.9 % (11.5-14.5)
[2021-02-19 03:43] LABS: MUCOUS Present /lpf; PH 5 (5-8); URINE APPEARANCE Hazy; URINE BACTERIA None Seen /hpf; URINE BILIRUBIN Negative (NEGATIVE); URINE BLOOD Negative (NEGATIVE); URINE COLOR Yellow; URINE GLUCOSE Negative (NEGATIVE); URINE KETONE Negative (NEGATIVE); URINE LEUKOCYTE ESTERASE Negative (NEGATIVE); URINE NITRATE Negative (NEGATIVE); URINE PROTEIN(semi-quant) Negative (NEGATIVE); URINE RBC 0-2 /hpf; URINE UROBILINOGEN Negative (NEGATIVE); URINE WBC 0-2 /hpf
[2021-02-19 04:12] LABS: ALBUMIN 3.9 gm/dL (3.5-5.0); BILIRUBIN,TOTAL 1.3 mg/dL (0.0-1.0); CALCIUM 9.4 mg/dL (8.4-10.2); CREATINE KINASE 58 U/L (30-135); CREATININE, serum 0.54 (0.52-1.25); POTASSIUM 3.6 mmol/L (3.4-5.0); TOTAL PROTEIN 6.9 gm/dL (6.4-8.2)
[2021-02-19 04:19] LABS: TROPONIN-I < 0.012 ng/mL (0.000-0.035)
[2021-02-19] MEDS ORDERED: ANTIVERT 25MG25 MG PO (05:14)
[2021-02-19] MEDS ORDERED: ZOFRAN ODT4 MG PO (05:14)
[2021-02-19 06:06] VITALS: BP 149/71; PULSE 66
== END 2021-02-19 06:06 | disposition home or self-care (01) ==
LOC: COL.ER 02:30
PROVIDERS: Emergency Medicine
DX: R42 Dizziness and giddiness (principal); R11.0 Nausea; I48.91 Unspecified atrial fibrillation; Z79.01 Long term (current) use of anticoagulants; Z88.6 Allergy status to analgesic agent

== ENCOUNTER 2021-05-20 23:12 | Observation (INO) | payer MEDICARE, OTHER ==
[~2021-05-20] VITALS: Ht 172.7 cm; Wt 140.0 kg
[~2021-05-20 23:12] MED LIST changes: +ANTIVERT 25MG25 MG PO; +ZOFRAN ODT4 MG PO
[2021-05-20 23:32] LABS: BASO # 0.1 (0.0-0.2); BASO % 0.5 % (0.0-2.0); EOS # 0.3 (0.0-0.7); GRAN # 6.3 (1.4-6.5); GRAN % 63.9 % (42.2-75.2); HEMATOCRIT 42.1 % (37.0-47.0); HEMOGLOBIN 13.9 g/dl (12.5-16.0); LYMPH # 2.5 (1.2-3.4); LYMPH % 24.8 % (20.0-51.0); MEAN CELL VOLUME 88 fl (80.0-100.0); MEAN CORPUSCULAR HEMOGLOBIN 29 pg (27.0-31.0); MEAN CORPUSCULAR HGB CONC 33 g/dl (33.0-37.0); MEAN PLATELET VOLUME 9.9 fl (7.4-10.4); MONO # 0.7 (0.1-0.6); MONO % 7.5 % (1.7-9.3); PLATELET COUNT 203 K/mm3 (130-400); RED BLOOD COUNT 4.77 M/mm3 (4.10-5.30)
[2021-05-20 23:40] LABS: INR 1.2 (0.8-3.0); PROTHROMBIN TIME 13.5 SECONDS (9.7-12.8)
[2021-05-20 23:42] LABS: ALBUMIN 4.3 gm/dL (3.5-5.0); ANION GAP 8 mmol/L (7-16); BLOOD UREA NITROGEN 14 mg/dL (7-17); CARBON DIOXIDE 27 mmol/L (22-30); CHLORIDE 105 mmol/L (98-107); CREATININE, serum 0.61 (0.52-1.25); GLUCOSE 126 mg/dL (74-106); SODIUM 140 mmol/L (137-145); TOTAL PROTEIN 7.5 gm/dL (6.4-8.2)
[2021-05-20 23:43] LABS: ALANINE AMINOTRANSFERASE 27 U/L (4-34); ALKALINE PHOSPHATASE 95 U/L (50-136); AST,SGOT 35 U/L (15-37); BILIRUBIN,TOTAL 1.4 mg/dL (0.0-1.0)
[2021-05-20 23:50] LABS: COLLECTION METHOD CLEAN CATCH
[2021-05-20 23:54] LABS: TROPONIN-I < 0.012 ng/mL (0.000-0.035)
[2021-05-21 00:03] LABS: PH 6 (5-8); URINE APPEARANCE Hazy; URINE BACTERIA None Seen /hpf; URINE BILIRUBIN Negative (NEGATIVE); URINE BLOOD Negative (NEGATIVE); URINE COLOR Straw; URINE GLUCOSE Negative (NEGATIVE); URINE KETONE Negative (NEGATIVE); URINE LEUKOCYTE ESTERASE Negative (NEGATIVE); URINE NITRATE Negative (NEGATIVE); URINE PROTEIN(semi-quant) Negative (NEGATIVE); URINE RBC 0-2 /hpf; URINE UROBILINOGEN Negative (NEGATIVE); URINE WBC 0-2 /hpf
[2021-05-21 01:11] LABS: MAGNESIUM 1.9 mg/dL (1.6-2.3)
[2021-05-21 01:45] LABS: TSH w REFLEX 0.684 uIU/mL (0.350-4.940)
[2021-05-21 03:59] VITALS: BP 144/72; PULSE 85; TEMP 98.3
--- NOTE | 2021-05-21 05:59 | NUR ---
Patient arrived from ER to medical floor around 0145. Alert and oriented x 4, and able to make needs known. Denies having pain and discomfort at this time. Peripheral INT to right AC. Denies SOB and dyspnea. LS CTA. Respirations even and unlabored. Marixa CPAP from home and put in on when she went to bed. HRI. Telemetry in place: A-fib. Capillary refill less than 3 seconds. Non-tenting skin turgor. BSAx4. Abdomen soft and non-tender. 1+ edema BLE. Patient remained NPO while on medical floor, except to medications with sips of water. Voices no questions, needs, or concerns at this time. Resting in bed with call light within reach.
--- NOTE | 2021-05-21 07:00 | NUR ---
Report with CAREY Oliver. Pt resting in bed, denies needs at this time. Call light in reach.
[2021-05-21 07:57] VITALS: BP 130/67; BP 144/100; PULSE 93; TEMP 98.4
--- NOTE | 2021-05-21 09:00 | NUR ---
Assessment complete. 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 Heart rate/rhythm irregular to auscultation. Saline lock IV to right AC without s/s of complications. Physical assessment unremarkable. No further needs reported. Call light in reach.
--- NOTE | 2021-05-21 10:15 | NUR ---
Furnace Brazer and primary hospitalist on unit now and notified of pt's increased heart rate earlier that is now decreased, approx 1 hour after medications given, rate 110's to low 120's.
[2021-05-21 11:38] VITALS: BP 121/98; PULSE 88; TEMP 97.7
--- NOTE | 2021-05-21 15:25 | NUR ---
Pt's heart rate back down in the 80's, fluctuating intermittently into the 120's.
[2021-05-21 15:51] VITALS: BP 114/43; PULSE 75; TEMP 98.7
--- NOTE | 2021-05-21 19:03 | NUR ---
Report to CAREY Oliver. Pt ambulating in room, requesting night medications soon to go to bed. Assisted pt with setting up CPAP machine. No further needs reported. Call light in reach.
[2021-05-21 19:35] VITALS: BP 125/69; PULSE 76; PULSE 83; TEMP 97.9
--- NOTE | 2021-05-21 21:12 | NUR ---
Patient assessed around 193. Alert and oriented x 4, and able to make needs known. Denies having pain and discomfort at this time. Peripheral INT to right AC. Denies SOB and dyspsnea. LS CTA. Respirations even and unlabored. HRI. Telemetry in place. A-fib. States she is not longer feeling the fluttering in her chest. Capillary refill less than 3 seconds. Non-tenting skin turgor. BSAx4. Abdomen soft and non-tender. 1+ edema BLE. Voices no questions, needs, or concerns at this time. Resting in bed with call light within reach.
[2021-05-22 03:56] VITALS: BP 113/77; PULSE 117; TEMP 97.8
--- NOTE | 2021-05-22 05:52 | NUR ---
Patient has been awake on and off during this shift. Received PRN APAP for pain. Patient continues on telemetry monitoring in A-fib, ranging 80s-130s. Denies chest palpitations/fluttering. Resting in bed with call light within reach. CPAP on.
--- NOTE | 2021-05-22 07:00 | NUR ---
Report with CAREY Oliver. Pt ambulating around room, getting ready for day. Sched medications administered. Pt denies further needs. Call light in reach.
[2021-05-22 07:30] VITALS: BP 129/103; PULSE 99; TEMP 97.8
[2021-05-22 07:52] LABS: CALCIUM 9.5 mg/dL (8.4-10.2); CREATININE, serum 0.58 (0.52-1.25)
--- NOTE | 2021-05-22 08:00 | NUR ---
Assessment complete. Pt sitting up in chair, denies pain at this time but reports slight discomfort in hands and requesting Tylenol. Heart rate and rhythm remain irregular and occasionally tachycardic. Saline lock IV to right AC without s/s of complications. No further needs reported. Call light in reach.
[2021-05-22 08:06] LABS: BASO # 0.1 (0.0-0.2); BASO % 0.8 % (0.0-2.0); EOS # 0.3 (0.0-0.7); EOS % 3.4 % (0-4.0); HEMATOCRIT 43.8 % (37.0-47.0); HEMOGLOBIN 14.8 g/dl (12.5-16.0); LYMPH # 2.6 (1.2-3.4); LYMPH % 34.6 % (20.0-51.0); MEAN CELL VOLUME 87 fl (80.0-100.0); MEAN CORPUSCULAR HEMOGLOBIN 30 pg (27.0-31.0); MEAN CORPUSCULAR HGB CONC 34 g/dl (33.0-37.0); MONO # 0.6 (0.1-0.6); MONO % 7.7 % (1.7-9.3); PLATELET COUNT 130 K/mm3 (130-400); RED BLOOD COUNT 5.01 M/mm3 (4.10-5.30); REDCELL DISTRIBUTION WIDTH-CV 13.2 % (11.5-14.5)
--- NOTE | 2021-05-22 10:00 | NUR ---
Tele called to notify nurse of pt converting to sinus rhythm around 0845. Provider notified, will monitor for now and possibly discharge later.
[2021-05-22 12:40] VITALS: BP 96/70; PULSE 61; TEMP 98.4
--- NOTE | 2021-05-22 13:45 | NUR ---
sitting up in chair, bedside shift reprot received from CAREY Keene
--- NOTE | 2021-05-22 13:56 | NUR ---
VIN met with patient to complete intake. 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 Patient states that she does not wish to appoint for contact, but does have a daugther listed Nicole [phone]. Patient states that she does not have a DPOA-HC and does not wish to appoint anyone at this time. Patient states that she does not utilize DME and is independent with ADL's. Patient states that her PCP is Dr. Geo Grey, and obtains meds from [facility], Patient states that her plan is to return to her home up on [place] and has no concerns with doing so. DC Plan: Home/[place]
--- NOTE | 2021-05-22 14:11 | NUR ---
Report with CAREY Shannon. Pt sitting up in chair, asks about IV site change, which will be assessed. No further needs reported. Call light in reach.
--- NOTE | 2021-05-22 14:50 | NUR ---
remains up in chair, heart rate strong and regujlar, lungs CTA, skin wawrm and dry, abdomen obese and bowel sounds present in 4 quads, peripheral pulses present in 4 4 extremities, telemetry in place, INT to right antecubital
--- NOTE | 2021-05-22 15:00 | NUR ---
resting in bed, states her anxiety is out the roof, medicated with scheduled, valium 10mg, also c/o some of nausea and medicated with zofran 4mg
--- NOTE | 2021-05-22 16:18 | NUR ---
RN assisted her with cleaning up and noticed red rash under breasts, was cleaned and then began to have itching, PA notifed
[2021-05-22 16:31] VITALS: BP 119/47; PULSE 60; TEMP 98
--- NOTE | 2021-05-22 18:57 | NUR ---
shift report given to CAREY Aleman
[2021-05-22 20:30] VITALS: BP 129/67; PULSE 71; TEMP 97.6
--- NOTE | 2021-05-22 20:30 | NUR ---
Initial shift assessment done- did request some Tylenol before bed for arthritis type pain to hands/knees, AP regular- Tele- Sinus ,,denies need for a snack tonight- has been sitting up in the chair,, denies palpitations or SOB, VSS
--- NOTE | 2021-05-22 22:15 | NUR ---
Patient called to desk and stated she didnt feel right- went to room, patient sitting on edge of bed, states she just finished the movie she was watching and got up to bathroom and when back to bed almost felt "dizzy", Vitals taken- stable 132/67,63,18,96% RA,, Tele called and no changes to telemetry- remains in Sinus, rate mid fifties-- pt states she is just a little anxious,"I just need to sleep" states she will put her home CPAP on and go to bed- instructed to call she cannot sleep or doesnt feel right--
[2021-05-22 22:30] VITALS: BP 132/67; PULSE 63
[2021-05-23 02:30] VITALS: BP 122/68; PULSE 58; TEMP 97.5
--- NOTE | 2021-05-23 02:45 | NUR ---
Has been sleeping well for past 2-3 hours- no requests, VSS, Up to bathroom, steady on feet, no dizziness. Tele on- low 50,s throughout the night, sinus
[2021-05-23 06:04] LABS: BASO # 0.1 (0.0-0.2); BASO % 0.7 % (0.0-2.0); EOS # 0.3 (0.0-0.7); EOS % 3.9 % (0-4.0); GRAN # 4.3 (1.4-6.5); GRAN % 55.7 % (42.2-75.2); HEMOGLOBIN 13.2 g/dl (12.5-16.0); LYMPH # 2.4 (1.2-3.4); MEAN CELL VOLUME 90 fl (80.0-100.0); MEAN CORPUSCULAR HEMOGLOBIN 29 pg (27.0-31.0); MEAN CORPUSCULAR HGB CONC 32 g/dl (33.0-37.0); MEAN PLATELET VOLUME 10.3 fl (7.4-10.4); MONO # 0.6 (0.1-0.6); MONO % 8.4 % (1.7-9.3); PLATELET COUNT 178 K/mm3 (130-400); RED BLOOD COUNT 4.55 M/mm3 (4.10-5.30)
[2021-05-23 06:25] LABS: CALCIUM 9.3 mg/dL (8.4-10.2); CREATININE, serum 0.59 (0.52-1.25); POTASSIUM 3.7 mmol/L (3.4-5.0)
[2021-05-23 07:40] VITALS: BP 106/52; PULSE 59; TEMP 98.8
--- NOTE | 2021-05-23 07:50 | NUR ---
Shift assessment complete. Pt sitting up in recliner finishing breakfast. Denies pain, SOA, dizziness, or other concerns. Heart RRR. Lungs CTA. A&Ox4. Mild swelling to BLE w/o tenderness. Pt hopeful to go home today. Will continue to monitor.
[2021-05-23] MEDS ORDERED: DESENEX TP (09:49)
--- NOTE | 2021-05-23 10:00 | NUR ---
IV to right AC removed per hospitalist orders.
--- NOTE | 2021-05-23 12:37 | NUR ---
First visit from the air value tester. No needs right now.
[2021-05-23 13:00] VITALS: BP 116/53; PULSE 58; TEMP 98.1
--- NOTE | 2021-05-23 16:00 | NUR ---
Discharge teaching discussed w/pt and all questions answered. Pt escorted out w/all belongings.
== END 2021-05-23 16:00 | disposition home or self-care (01) ==
LOC: COL.ER 23:12 → MEDICAL 05-21 00:27
PROVIDERS: Student in an Organized Health Care Education/Training Program; ADMIT Internal Medicine
DX: I48.0 Paroxysmal atrial fibrillation (principal); I47.2 Ventricular tachycardia; E87.6 Hypokalemia; I10 Essential (primary) hypertension; E78.5 Hyperlipidemia, unspecified; E66.01 Morbid (severe) obesity due to excess calories; G47.33 Obstructive sleep apnea (adult) (pediatric); J44.9 Chronic obstructive pulmonary disease, unspecified; E03.9 Hypothyroidism, unspecified; K21.9 Gastro-esophageal reflux disease without esophagitis; Z79.890 Hormone replacement therapy; Z79.899 Other long term (current) drug therapy; Z87.891 Personal history of nicotine dependence; Z79.01 Long term (current) use of anticoagulants
CPT/HCPCS: 99232-AI; 99239; G0378

== ENCOUNTER 2021-07-26 20:12 | Emergency (ER) | payer MEDICARE, OTHER ==
[~2021-07-26] VITALS: Ht 172.7 cm; Wt 147.3 kg
[~2021-07-26 20:12] MED LIST changes: +DESENEX TP
[2021-07-26 20:21] VITALS: TEMP 98.4
[2021-07-26] MEDS ORDERED: DOXYCYCLINE 10100 MG PO (20:51)
[2021-07-26 21:00] VITALS: BP 125/80; PULSE 82
--- NOTE | 2021-07-27 16:06 | NUR ---
Airplane Fueler contacted patient and left a voicemail.
== END 2021-07-26 21:10 | disposition home or self-care (01) ==
LOC: COL.ER 20:12
DX: I80.3 Phlebitis and thrombophlebitis of lower extremities, unspecified (principal); I48.0 Paroxysmal atrial fibrillation; I10 Essential (primary) hypertension; E66.01 Morbid (severe) obesity due to excess calories; E03.9 Hypothyroidism, unspecified; J44.9 Chronic obstructive pulmonary disease, unspecified; Z68.42 Body mass index [BMI] 45.0-49.9, adult; Z79.02 Long term (current) use of antithrombotics/antiplatelets; Z79.899 Other long term (current) drug therapy; Z79.890 Hormone replacement therapy

== ENCOUNTER 2021-10-06 06:00 | Emergency (ER) | payer MEDICARE, OTHER ==
[~2021-10-06] VITALS: Ht 172.7 cm; Wt 152.3 kg
[~2021-10-06 06:00] MED LIST changes: +DOXYCYCLINE 10100 MG PO
[2021-10-06 06:02] VITALS: TEMP 98
[2021-10-06] MEDS ORDERED: VITAMIN D31000 I1 PO (06:13)
[2021-10-06] MEDS ORDERED: TYLENOL 325MG325 MG PO (06:14)
[2021-10-06] MEDS ORDERED: VITAMIN C500 MG PO (06:14)
[2021-10-06 06:47] LABS: BASO # 0.1 K/mm3 (0.0-0.2); BASO % 0.8 % (0.0-2.0); EOS # 0.3 K/mm3 (0.0-0.7); EOS % 4.4 % (0.0-4.0); GRAN # 4.6 K/mm3 (1.4-6.5); GRAN % 60.5 % (42.2-75.2); HEMATOCRIT 40.4 % (37.0-47.0); HEMOGLOBIN 13.5 g/dl (12.5-16.0); MEAN CELL VOLUME 87 fl (80.0-100.0); MEAN CORPUSCULAR HEMOGLOBIN 29 pg (27-31); MEAN CORPUSCULAR HGB CONC 33 g/dl (33.0-37.0); MONO # 0.6 K/mm3 (0.1-0.6); MONO % 7.9 % (1.7-9.3); PLATELET COUNT 198 K/mm3 (130-400); RED BLOOD COUNT 4.64 M/mm3 (4.10-5.30); REDCELL DISTRIBUTION WIDTH-CV 13.2 % (11.5-14.5)
[2021-10-06 07:10] LABS: ALBUMIN 4.1 gm/dL (3.4-4.8); BILIRUBIN,TOTAL 1.6 mg/dL (0.2-1.2); CALCIUM 9.4 mg/dL (8.4-10.2); CREATININE, serum 0.74 mg/dL (0.57-1.11); POTASSIUM 4.1 mmol/L (3.5-4.5); TOTAL PROTEIN 7.1 gm/dL (6.2-8.1)
[2021-10-06 07:35] LABS: TROPONIN-I 0.013 ng/mL (0.00-0.033)
[2021-10-06 07:40] VITALS: BP 107/65; PULSE 77
== END 2021-10-06 07:40 | disposition home or self-care (01) ==
LOC: COL.ER 06:00
PROVIDERS: Personal Emergency Response Attendant
DX: I48.0 Paroxysmal atrial fibrillation (principal); I10 Essential (primary) hypertension; E78.5 Hyperlipidemia, unspecified; E78.00 Pure hypercholesterolemia, unspecified; K21.9 Gastro-esophageal reflux disease without esophagitis; E03.9 Hypothyroidism, unspecified; J44.9 Chronic obstructive pulmonary disease, unspecified; E66.01 Morbid (severe) obesity due to excess calories; Z68.43 Body mass index [BMI] 50.0-59.9, adult; Z79.01 Long term (current) use of anticoagulants; Z79.890 Hormone replacement therapy; Z79.899 Other long term (current) drug therapy

== ENCOUNTER 2021-10-11 09:33 | Emergency (ER) | payer MEDICARE, OTHER ==
[~2021-10-11] VITALS: Ht 172.7 cm; Wt 154.5 kg
[~2021-10-11 09:33] MED LIST changes: +TYLENOL 325MG325 MG PO
[2021-10-11 09:37] VITALS: TEMP 98.6
[2021-10-11 10:01] LABS: BASO % 0.6 % (0.0-2.0); EOS # 0.3 K/mm3 (0.0-0.7); GRAN % 68.5 % (42.2-75.2); HEMATOCRIT 41.4 % (37.0-47.0); HEMOGLOBIN 13.6 g/dl (12.5-16.0); LYMPH # 1.4 K/mm3 (1.2-3.4); LYMPH % 19.6 % (20.0-51.0); MEAN CELL VOLUME 88 fl (80.0-100.0); MEAN CORPUSCULAR HEMOGLOBIN 29 pg (27-31); MEAN CORPUSCULAR HGB CONC 33 g/dl (33.0-37.0); MEAN PLATELET VOLUME 10.2 fl (7.4-10.4); MONO # 0.5 K/mm3 (0.1-0.6); MONO % 7.2 % (1.7-9.3); PLATELET COUNT 197 K/mm3 (130-400)
[2021-10-11 10:20] LABS: ALANINE AMINOTRANSFERASE 23 U/L (0-55); ALKALINE PHOSPHATASE 98 U/L (40-150); ANION GAP 7 mmol/L (7-16); AST,SGOT 23 U/L (5-34); BILIRUBIN,TOTAL 2.1 mg/dL (0.2-1.2); BLOOD UREA NITROGEN 8 mg/dL (10-20); CALCIUM 9.7 mg/dL (8.4-10.2); CARBON DIOXIDE 29 mmol/L (23-31); CHLORIDE 105 mmol/L (98-107); CREATININE, serum 0.79 mg/dL (0.57-1.11); GLUCOSE 174 mg/dL (70-99); POTASSIUM 3.5 mmol/L (3.5-4.5); SODIUM 141 mmol/L (136-145); TOTAL PROTEIN 7.2 gm/dL (6.2-8.1)
[2021-10-11 10:26] LABS: TROPONIN-I < 0.010 ng/mL (0.00-0.033)
[2021-10-11 10:39] LABS: INR 1.4 (0.8-3.0); PROTHROMBIN TIME 15.7 SECONDS (9.7-12.8)
[2021-10-11 10:42] LABS: PARTIAL THROMBOPLASTIN TIME 38.5 SECONDS (26.0-37.0)
[2021-10-11 11:27] VITALS: BP 160/70; PULSE 80
== END 2021-10-11 11:38 | disposition home or self-care (01) ==
LOC: COL.ER 09:33
PROVIDERS: Emergency Medicine
DX: R00.2 Palpitations (principal); I48.91 Unspecified atrial fibrillation; K21.9 Gastro-esophageal reflux disease without esophagitis; J44.9 Chronic obstructive pulmonary disease, unspecified; I10 Essential (primary) hypertension; E78.5 Hyperlipidemia, unspecified; Z79.01 Long term (current) use of anticoagulants; Z87.891 Personal history of nicotine dependence; Z79.899 Other long term (current) drug therapy; Z79.51 Long term (current) use of inhaled steroids; Z95.818 Presence of other cardiac implants and grafts

== ENCOUNTER 2022-01-31 11:15 | Emergency (ER) | payer MEDICARE, OTHER ==
[~2022-01-31] VITALS: Ht 172.7 cm; Wt 151.8 kg
[2022-01-31 11:15] VITALS: TEMP 98.9
[2022-01-31 11:51] LABS: BASO # 0.1 K/mm3 (0.0-0.2); BASO % 0.9 % (0.0-2.0); EOS # 0.3 K/mm3 (0.0-0.7); EOS % 3.7 % (0.0-4.0); GRAN # 4.4 K/mm3 (1.4-6.5); GRAN % 63.2 % (42.2-75.2); HEMATOCRIT 39.2 % (37.0-47.0); HEMOGLOBIN 12.8 g/dl (12.5-16.0); LYMPH # 1.7 K/mm3 (1.2-3.4); LYMPH % 24.5 % (20.0-51.0); MEAN CELL VOLUME 90 fl (80.0-100.0); MEAN CORPUSCULAR HEMOGLOBIN 29 pg (27-31); MEAN CORPUSCULAR HGB CONC 33 g/dl (33.0-37.0); MONO # 0.5 K/mm3 (0.1-0.6); MONO % 7.6 % (1.7-9.3); PLATELET COUNT 183 K/mm3 (130-400); RED BLOOD COUNT 4.36 M/mm3 (4.10-5.30); REDCELL DISTRIBUTION WIDTH-CV 13.4 % (11.5-14.5)
[2022-01-31 12:30] LABS: ALANINE AMINOTRANSFERASE 25 U/L (0-55); ALBUMIN 3.4 gm/dL (3.4-4.8); ALKALINE PHOSPHATASE 84 U/L (40-150); AST,SGOT 24 U/L (5-34); BILIRUBIN,TOTAL 1.5 mg/dL (0.2-1.2); BLOOD UREA NITROGEN 10 mg/dL (10-20); CALCIUM 9.1 mg/dL (8.4-10.2); CARBON DIOXIDE 27 mmol/L (23-31); CHLORIDE 108 mmol/L (98-107); CREATININE, serum 0.71 mg/dL (0.57-1.11); GLUCOSE 137 mg/dL (70-99); POTASSIUM 3.9 mmol/L (3.5-4.5); SODIUM 143 mmol/L (136-145); TOTAL PROTEIN 6.4 gm/dL (6.2-8.1)
[2022-01-31 12:40] LABS: ANION GAP 8 mmol/L (7-16)
[2022-01-31 12:52] LABS: TROPONIN-I < 0.010 ng/mL (0.00-0.033); TSH w REFLEX 0.557 uIU/mL (0.350-4.940)
[2022-01-31 13:30] VITALS: BP 105/56; PULSE 62
== END 2022-01-31 13:30 | disposition home or self-care (01) ==
LOC: COL.ER 11:15
PROVIDERS: Emergency Medicine
DX: I48.91 Unspecified atrial fibrillation (principal); Z79.01 Long term (current) use of anticoagulants

== ENCOUNTER 2022-04-01 16:48 | Inpatient (IN) | payer MEDICARE, OTHER ==
[~2022-04-01] VITALS: Ht 172.7 cm; Wt 149.8 kg
[2022-04-01] VITALS (171 sets, daily range): BP systolic 164; BP diastolic 85; PULSE 68; TEMP 98.1; O2SAT 94–100
[2022-04-01 17:11] LABS: BASO # 0.1 K/mm3 (0.0-0.2); BASO % 0.6 % (0.0-2.0); EOS # 0.3 K/mm3 (0.0-0.7); EOS % 3.1 % (0.0-4.0); GRAN # 4.6 K/mm3 (1.4-6.5); GRAN % 56.1 % (42.2-75.2); HEMATOCRIT 42.8 % (37.0-47.0); HEMOGLOBIN 14.4 g/dl (12.5-16.0); LYMPH # 2.6 K/mm3 (1.2-3.4); LYMPH % 31.4 % (20.0-51.0); MEAN CELL VOLUME 87 fl (80.0-100.0); MEAN CORPUSCULAR HEMOGLOBIN 29 pg (27-31); MEAN CORPUSCULAR HGB CONC 34 g/dl (33.0-37.0); MEAN PLATELET VOLUME 9.7 fl (7.4-10.4); MONO # 0.7 K/mm3 (0.1-0.6); MONO % 8.7 % (1.7-9.3); PLATELET COUNT 196 K/mm3 (130-400); RED BLOOD COUNT 4.92 M/mm3 (4.10-5.30); REDCELL DISTRIBUTION WIDTH-CV 13.5 % (11.5-14.5)
[2022-04-01 17:25] LABS: ALANINE AMINOTRANSFERASE 25 U/L (0-55); ALKALINE PHOSPHATASE 95 U/L (40-150); ANION GAP 12 mmol/L (7-16); AST,SGOT 22 U/L (5-34); BILIRUBIN,TOTAL 1.5 mg/dL (0.2-1.2); BLOOD UREA NITROGEN 8 mg/dL (10-20); CALCIUM 9.7 mg/dL (8.4-10.2); CARBON DIOXIDE 26 mmol/L (23-31); CHLORIDE 106 mmol/L (98-107); CREATININE, serum 0.69 mg/dL (0.57-1.11); GLUCOSE 119 mg/dL (70-99); POTASSIUM 3.5 mmol/L (3.5-4.5); SODIUM 144 mmol/L (136-145); TOTAL PROTEIN 7.2 gm/dL (6.2-8.1)
[2022-04-01 17:29] LABS: INR 1.1 (0.8-3.0); PROTHROMBIN TIME 12.4 SECONDS (9.7-12.8)
[2022-04-01 17:34] LABS: TROPONIN-I < 0.010 ng/mL (0.00-0.033)
[2022-04-02] VITALS (101 sets, daily range): BP systolic 105–142; BP diastolic 47–65; PULSE 50–58; TEMP 97.6–98.1; O2SAT 96–100
--- NOTE | 2022-04-02 02:10 | NUR ---
TALK TO CAREY HEADING REPAIRER ABOUT TRANSFER OF PATIENT TO HER AREA FOR CONTINUED ADMIT, RN ACCEPTS PATIENT TO ROOM 342. PATIENT IS TRANSFERRED BY WHEEL CHAIR AND ABULATES AROUND EMILY, FREELY
[2022-04-02 06:29] LABS: BASO % 0.4 % (0.0-2.0); EOS # 0.3 K/mm3 (0.0-0.7); EOS % 2.6 % (0.0-4.0); GRAN # 5.9 K/mm3 (1.4-6.5); GRAN % 60.9 % (42.2-75.2); HEMATOCRIT 39.8 % (37.0-47.0); HEMOGLOBIN 13.2 g/dl (12.5-16.0); LYMPH # 2.7 K/mm3 (1.2-3.4); LYMPH % 27.7 % (20.0-51.0); MEAN CELL VOLUME 88 fl (80.0-100.0); MEAN CORPUSCULAR HEMOGLOBIN 29 pg (27-31); MEAN CORPUSCULAR HGB CONC 33 g/dl (33.0-37.0); MEAN PLATELET VOLUME 10.5 fl (7.4-10.4); MONO # 0.8 K/mm3 (0.1-0.6); MONO % 8.2 % (1.7-9.3); PLATELET COUNT 183 K/mm3 (130-400); REDCELL DISTRIBUTION WIDTH-CV 13.6 % (11.5-14.5)
[2022-04-02 06:39] LABS: ALBUMIN 3.6 gm/dL (3.4-4.8); CALCIUM 9.7 mg/dL (8.4-10.2); CREATININE, serum 0.68 mg/dL (0.57-1.11); MAGNESIUM 2.1 mg/dL (1.6-2.6); PHOSPHOROUS 3.1 mg/dL (2.3-4.7); POTASSIUM 4.1 mmol/L (3.5-4.5)
--- NOTE | 2022-04-02 07:58 | NUR ---
Patient sitting up in bed, just finished eating breakfast. A&Ox4. VSS. IV CDI. Reports arthritic pain in knees and hands. Pain medication given as scheduled. Independent in the room. Call light within reach
--- NOTE | 2022-04-02 15:33 | NUR ---
Discharge paperwork reviewed with the patient. Patient verbalized an understanding to follow doctors orders. IV removed, tip intact, gauze and coban applied. Patient takem by wheelchair to awaiting vehicle. No further needs expressed
== END 2022-04-02 15:36 | disposition home or self-care (01) | DRG 309 ==
LOC: COL.ER 16:48 → ICU 17:20 → SURG 04-02 02:23
PROVIDERS: Nurse Practitioner Primary Care; ADMIT Internal Medicine
DX: I48.0 Paroxysmal atrial fibrillation (principal); Z68.42 Body mass index [BMI] 45.0-49.9, adult; E78.5 Hyperlipidemia, unspecified; K21.9 Gastro-esophageal reflux disease without esophagitis; E03.9 Hypothyroidism, unspecified; I10 Essential (primary) hypertension; G47.33 Obstructive sleep apnea (adult) (pediatric); E66.01 Morbid (severe) obesity due to excess calories; J44.9 Chronic obstructive pulmonary disease, unspecified; M19.90 Unspecified osteoarthritis, unspecified site; Z88.8 Allergy status to other drugs, medicaments and biological substances; Z88.5 Allergy status to narcotic agent; Z87.891 Personal history of nicotine dependence; Z79.01 Long term (current) use of anticoagulants; Z86.79 Personal history of other diseases of the circulatory system; Z23 Encounter for immunization
CPT/HCPCS: J3475

== ENCOUNTER 2022-04-04 04:30 | Inpatient (IN) | payer MEDICARE, OTHER ==
[~2022-04-04] VITALS: Ht 172.7 cm; Wt 146.4 kg
[2022-04-04 05:14] LABS: ALANINE AMINOTRANSFERASE 23 U/L (0-55); ALBUMIN 3.8 gm/dL (3.4-4.8); ALKALINE PHOSPHATASE 85 U/L (40-150); ANION GAP 9 mmol/L (7-16); AST,SGOT 24 U/L (5-34); BILIRUBIN,TOTAL 1.8 mg/dL (0.2-1.2); BLOOD UREA NITROGEN 9 mg/dL (10-20); CALCIUM 9.9 mg/dL (8.4-10.2); CARBON DIOXIDE 25 mmol/L (23-31); CHLORIDE 108 mmol/L (98-107); CREATININE, serum 0.71 mg/dL (0.57-1.11); GLUCOSE 119 mg/dL (70-99); POTASSIUM 4.3 mmol/L (3.5-4.5); SODIUM 142 mmol/L (136-145); TOTAL PROTEIN 6.9 gm/dL (6.2-8.1)
[2022-04-04 05:20] LABS: TROPONIN-I < 0.010 ng/mL (0.00-0.033)
[2022-04-04 05:39] LABS: BASO # 0.1 K/mm3 (0.0-0.2); BASO % 0.7 % (0.0-2.0); EOS # 0.2 K/mm3 (0.0-0.7); GRAN % 55.6 % (42.2-75.2); HEMATOCRIT 41.6 % (37.0-47.0); LYMPH # 2.3 K/mm3 (1.2-3.4); LYMPH % 32.2 % (20.0-51.0); MEAN CELL VOLUME 87 fl (80.0-100.0); MEAN CORPUSCULAR HEMOGLOBIN 29 pg (27-31); MEAN CORPUSCULAR HGB CONC 34 g/dl (33.0-37.0); MEAN PLATELET VOLUME 10.2 fl (7.4-10.4); MONO # 0.6 K/mm3 (0.1-0.6); MONO % 8.4 % (1.7-9.3); PLATELET COUNT 169 K/mm3 (130-400); RED BLOOD COUNT 4.76 M/mm3 (4.10-5.30); REDCELL DISTRIBUTION WIDTH-CV 13.4 % (11.5-14.5)
[2022-04-04] MEDS ORDERED: TYLENOL 500MG500 MG PO ×2 (06:11→06:12)
[2022-04-04 06:59] LABS: TSH w REFLEX 0.955 uIU/mL (0.350-4.940)
[2022-04-04 11:44] VITALS: BP 114/52; PULSE 53; TEMP 98.1
[2022-04-04 11:54] VITALS: BP 149/64; PULSE 72; TEMP 97.6
[2022-04-04 16:16] VITALS: BP 108/45; PULSE 56
[2022-04-04 19:48] VITALS: BP 139/59; PULSE 57; TEMP 98.1
[2022-04-05] VITALS (8 sets, daily range): BP systolic 106–169; BP diastolic 45–90; PULSE 48–134; TEMP 97.6–98.2
[2022-04-05 06:39] LABS: BASO # 0.1 K/mm3 (0.0-0.2); BASO % 0.7 % (0.0-2.0); EOS # 0.3 K/mm3 (0.0-0.7); EOS % 3.7 % (0.0-4.0); GRAN # 4.1 K/mm3 (1.4-6.5); GRAN % 55.9 % (42.2-75.2); HEMATOCRIT 39.2 % (37.0-47.0); LYMPH # 2.3 K/mm3 (1.2-3.4); LYMPH % 31.6 % (20.0-51.0); MEAN CELL VOLUME 90 fl (80.0-100.0); MEAN CORPUSCULAR HEMOGLOBIN 30 pg (27-31); MEAN CORPUSCULAR HGB CONC 33 g/dl (33.0-37.0); MEAN PLATELET VOLUME 10.4 fl (7.4-10.4); MONO # 0.6 K/mm3 (0.1-0.6); PLATELET COUNT 149 K/mm3 (130-400); RED BLOOD COUNT 4.38 M/mm3 (4.10-5.30); REDCELL DISTRIBUTION WIDTH-CV 13.5 % (11.5-14.5)
[2022-04-05 07:06] LABS: CALCIUM 9.2 mg/dL (8.4-10.2); CREATININE, serum 0.65 mg/dL (0.57-1.11); POTASSIUM 3.9 mmol/L (3.5-4.5)
--- NOTE | 2022-04-05 09:00 | NUR ---
Patient is resting in chair, alert and oriented x 4, telemetry in place NSR, low heart rate. Assessment completed, no other needs at this time. Call light within reach.
--- NOTE | 2022-04-05 10:35 | NUR ---
VIN met with the patient to discuss discharge plan. The patient lives alone in [place]. Her last month. She states that her son, Manoj, lives in the same apartment complex as her. She reports independence with ADLs and has a cane and CPAP. The patient's states that she sees a male provider at [place] [id number]. She is unsure of his name. She receives her medications from [facility]. The patient does not have a DPOA-HC, but she was interested in obtaining a form. VIN provided. She is has two children: Manoj and Ronny Mandujano (ph#[phone]). The patient plans to return home upon discharge. No additional needs at this time. *Discharge plan: home*
--- NOTE | 2022-04-05 17:51 | NUR ---
Call from critical care, patient started with AFIB RVR, HR 140-155. Patient was on restroom and reported some palpitation and agitation. EKG is ordered. Call placed to Dr. Batista who ordered to continue monitoring and provide dose of amiodaron as scheduled at night.
--- NOTE | 2022-04-05 19:31 | NUR ---
Patient has been unstable. She continues with AFIB HR 130'S report given to night RN.
--- NOTE | 2022-04-06 02:16 | NUR ---
BEGINNING OF SHIFT NOTE: PATIENT UP AMBULATING IN ROOM GETTING CPAP SET UP FOR THE NIGHT. PATIENT C/O PALPITATIONS AND HEART RATE PER TELEMETRY IS 130S-140S. PATIENT ENCOURAGED TO SIT AND REST AND PATIENT IN AGREEMENT CPAP IS SET UP.
[2022-04-06 04:02] VITALS: BP 109/45; PULSE 54; TEMP 97.8
--- NOTE | 2022-04-06 06:10 | NUR ---
END OF SHIFT NOTE: PATIENT RESTED QUIETLY THIS SHIFT. PATIENT REMAINED IN SINUS RHTHYM TO SINUS DEBBY WITH RATES NOTED LOW 50-51 AT TIMES. PATIENT COMPLAINED OF NOT SLEEPING WELL WHICH PATIENT REMARKS IS USUAL FOR HER WHEN SHE IS IN THE HOSPITAL. PATIENT RECEIVED NO PRN MEDICATIONS.
[2022-04-06 06:49] LABS: BASO % 0.6 % (0.0-2.0); EOS # 0.2 K/mm3 (0.0-0.7); EOS % 3.3 % (0.0-4.0); GRAN # 4.5 K/mm3 (1.4-6.5); GRAN % 61.7 % (42.2-75.2); HEMATOCRIT 39.1 % (37.0-47.0); HEMOGLOBIN 12.9 g/dl (12.5-16.0); LYMPH # 1.9 K/mm3 (1.2-3.4); LYMPH % 26.2 % (20.0-51.0); MEAN CELL VOLUME 90 fl (80.0-100.0); MEAN CORPUSCULAR HEMOGLOBIN 30 pg (27-31); MEAN CORPUSCULAR HGB CONC 33 g/dl (33.0-37.0); MEAN PLATELET VOLUME 10.4 fl (7.4-10.4); MONO # 0.6 K/mm3 (0.1-0.6); MONO % 8.1 % (1.7-9.3); PLATELET COUNT 167 K/mm3 (130-400); RED BLOOD COUNT 4.35 M/mm3 (4.10-5.30); REDCELL DISTRIBUTION WIDTH-CV 13.2 % (11.5-14.5)
[2022-04-06 07:05] LABS: CALCIUM 9.3 mg/dL (8.4-10.2); CREATININE, serum 0.65 mg/dL (0.57-1.11); POTASSIUM 3.7 mmol/L (3.5-4.5)
[2022-04-06 07:26] VITALS: BP 128/59; PULSE 62; TEMP 97.8
--- NOTE | 2022-04-06 09:00 | NUR ---
Patient is sitting in the chair, alert and oriented x 4, she is less stressed than yesterday. Her heart rate is WNL, NSR. Complains of some pain in her hands. Telemetry in place, assessment completed, meds provided. No other needs at this time. Call light within reach.
[2022-04-06 11:13] VITALS: BP 129/54; PULSE 64; TEMP 98.6
--- NOTE | 2022-04-06 12:45 | NUR ---
Initial visit; Patient from [place] and states she is glad Staff Nurse Anesthetist came to look in on her. Staff Nurse Anesthetist offered empathy and God's blessings and will keep "Michelle," in her prayers.
[2022-04-06 15:02] VITALS: BP 118/52; PULSE 55; TEMP 97.5
--- NOTE | 2022-04-06 18:23 | NUR ---
Patient heart has been stable along the day. NSR. She just complained of pain in her hands, tylenol provided. Report will be given to night RN.
--- NOTE | 2022-04-06 20:00 | NUR ---
THE PATIENT IS SITTING IN HER RECLINER. SHE DENIES ANY PAIN, JUST SOME BODY ACHES SHE IS ATTRIBUTING TO HER ARTHRITIS. THE PATIENT DOES SOUNDS SLIGHTLY CONGESTED AND IS COMPLAINING OF A HEADACHE, NO FEVER NOTED, HOWEVER, THE PATIENT STATES SHE DOESN'T FEEL LIKE SHE HAS COVID, BUT THINKS IT MAY BE A GOOD IDEA TO TEST AT THIS TIME. AFTER FURTHER ASSESSMENT, IT APPEARS THAT HER RIGHT FOREARM IV IS BAD, THE SITES HAS SOME ERETHYMA WELL TENDERNESS AND SWELLING JUST ABOVE INSERTION SITE. WILL CONTINUE TO MONITOR.
[2022-04-06 20:21] VITALS: BP 160/71; PULSE 73; TEMP 98.4
[2022-04-07 00:05] VITALS: BP 111/40; PULSE 57; TEMP 97.4
[2022-04-07 03:16] VITALS: BP 108/40; BP 108/42; PULSE 61; TEMP 97.9
[2022-04-07 07:38] VITALS: BP 130/45; PULSE 59; TEMP 97.9
--- NOTE | 2022-04-07 08:00 | NUR ---
Patient is sitting in chair, alert and oriented x 4, VSS, telemetry in place, NSR. Denies chest pain. States was not able to sleep. Assessment completed, meds provided. She just had her breakfast. No other needs at this time. Call light within reach.
[2022-04-07] MEDS ORDERED: CORDARONE200 MG/TAB PO ×8 (10:13→11:12)
[2022-04-07 11:18] VITALS: BP 109/45; PULSE 72; TEMP 97.7
--- NOTE | 2022-04-07 11:24 | NUR ---
The patient is to discharge back home today, 04/07. VIN met with the patient to present and review the IM form. The patient verbalized understanding and of agreement to discharge today. She signed the form and VIN provided her with a copy. The patient had no questions or concerns about returning home. No additional needs at this time.
[2022-04-07 15:21] VITALS: BP 126/42; PULSE 69; TEMP 97.7
--- NOTE | 2022-04-07 16:00 | NUR ---
Patient was provided with discharge information. All questions answered. IV access and telemetry discontinued.
== END 2022-04-07 16:00 | disposition home or self-care (01) | DRG 309 ==
LOC: COL.ER 04:30 → MEDICAL 06:11
PROVIDERS: Emergency Medicine Emergency Medical Services; Physician Assistant; Student in an Organized Health Care Education/Training Program; ADMIT Internal Medicine
DX: I48.0 Paroxysmal atrial fibrillation (principal); Z68.42 Body mass index [BMI] 45.0-49.9, adult; G47.33 Obstructive sleep apnea (adult) (pediatric); J44.9 Chronic obstructive pulmonary disease, unspecified; I10 Essential (primary) hypertension; E78.5 Hyperlipidemia, unspecified; M19.90 Unspecified osteoarthritis, unspecified site; K21.9 Gastro-esophageal reflux disease without esophagitis; E03.9 Hypothyroidism, unspecified; E66.9 Obesity, unspecified; Z79.890 Hormone replacement therapy; Z88.5 Allergy status to narcotic agent; Z88.8 Allergy status to other drugs, medicaments and biological substances; Z79.01 Long term (current) use of anticoagulants; Z87.891 Personal history of nicotine dependence; Z23 Encounter for immunization
CPT/HCPCS: J2405; J7030

== ENCOUNTER 2022-04-30 22:20 | Emergency (ER) | payer MEDICARE, OTHER ==
[~2022-04-30] VITALS: Ht 172.7 cm; Wt 149.1 kg
[~2022-04-30 22:20] MED LIST changes: +CORDARONE200 MG/TAB PO
[2022-04-30 22:22] VITALS: TEMP 97.4
[2022-04-30 22:49] LABS: BASO # 0.1 K/mm3 (0.0-0.2); BASO % 0.6 % (0.0-2.0); EOS # 0.3 K/mm3 (0.0-0.7); EOS % 3.6 % (0.0-4.0); GRAN # 4.8 K/mm3 (1.4-6.5); GRAN % 60.9 % (42.2-75.2); HEMATOCRIT 42.3 % (37.0-47.0); HEMOGLOBIN 14.3 g/dl (12.5-16.0); LYMPH # 2.2 K/mm3 (1.2-3.4); LYMPH % 27.8 % (20.0-51.0); MEAN CELL VOLUME 88 fl (80.0-100.0); MEAN CORPUSCULAR HEMOGLOBIN 30 pg (27-31); MEAN CORPUSCULAR HGB CONC 34 g/dl (33.0-37.0); MEAN PLATELET VOLUME 9.8 fl (7.4-10.4); MONO # 0.6 K/mm3 (0.1-0.6); PLATELET COUNT 173 K/mm3 (130-400); RED BLOOD COUNT 4.81 M/mm3 (4.10-5.30); REDCELL DISTRIBUTION WIDTH-CV 13.2 % (11.5-14.5)
[2022-04-30 22:57] LABS: INR 1.3 (0.8-3.0); PROTHROMBIN TIME 14.4 SECONDS (9.7-12.8)
[2022-04-30 22:59] LABS: PARTIAL THROMBOPLASTIN TIME 39.5 SECONDS (26.0-37.0)
[2022-04-30 23:06] LABS: ALBUMIN 4.4 gm/dL (3.4-4.8); BILIRUBIN,TOTAL 1.8 mg/dL (0.2-1.2); CREATININE, serum 0.88 mg/dL (0.57-1.11); POTASSIUM 3.4 mmol/L (3.5-4.5); TOTAL PROTEIN 7.5 gm/dL (6.2-8.1)
[2022-04-30 23:14] LABS: TROPONIN-I 0.015 ng/mL (0.00-0.033)
[2022-05-01 00:10] VITALS: BP 143/79; PULSE 92
[2022-05-03] VITALS (92 sets, daily range): O2SAT 90–100
== END 2022-05-01 00:12 | disposition home or self-care (01) ==
LOC: COL.ER 22:20
PROVIDERS: Family Medicine
DX: I48.20 Chronic atrial fibrillation, unspecified (principal); I10 Essential (primary) hypertension; E66.9 Obesity, unspecified; Z68.42 Body mass index [BMI] 45.0-49.9, adult; Z79.01 Long term (current) use of anticoagulants; Z79.899 Other long term (current) drug therapy

== ENCOUNTER 2022-05-02 10:06 | Emergency (ER) | payer MEDICARE, OTHER ==
[~2022-05-02] VITALS: Ht 172.7 cm; Wt 149.1 kg
[2022-05-02 10:21] VITALS: TEMP 97.4
[2022-05-02 10:44] LABS: COLLECTION METHOD CLEAN CATCH
[2022-05-02 11:11] LABS: SQUAMOUS EPITHELIAL 0-2 /hpf (0-10); URINE BACTERIA None Seen /hpf (NONE SEEN); URINE RBC 0-2 /hpf (0-2)
[2022-05-02 11:12] LABS: URINE APPEARANCE Clear (CLEAR/HAZY); URINE BLOOD Negative (NEGATIVE); URINE COLOR Yellow (YELLOW); URINE GLUCOSE Negative (NEGATIVE); URINE KETONE Negative (NEGATIVE); URINE NITRATE Negative (NEGATIVE); URINE PROTEIN(semi-quant) Negative (NEGATIVE); URINE UROBILINOGEN 0.2 E.U/dL (0.2-1.0)
[2022-05-02 11:22] LABS: CALCIUM 9.7 mg/dL (8.4-10.2); CREATININE, serum 0.74 mg/dL (0.57-1.11); POTASSIUM 3.7 mmol/L (3.5-4.5); TOTAL PROTEIN 6.6 gm/dL (6.2-8.1)
[2022-05-02 11:23] LABS: BASO # 0.1 K/mm3 (0.0-0.2); EOS # 0.2 K/mm3 (0.0-0.7); EOS % 3.7 % (0.0-4.0); GRAN # 3.5 K/mm3 (1.4-6.5); GRAN % 58.9 % (42.2-75.2); HEMATOCRIT 39.9 % (37.0-47.0); HEMOGLOBIN 13.2 g/dl (12.5-16.0); LYMPH # 1.6 K/mm3 (1.2-3.4); LYMPH % 27.4 % (20.0-51.0); MEAN CELL VOLUME 89 fl (80.0-100.0); MEAN CORPUSCULAR HEMOGLOBIN 30 pg (27-31); MEAN CORPUSCULAR HGB CONC 33 g/dl (33.0-37.0); MONO # 0.5 K/mm3 (0.1-0.6); MONO % 8.8 % (1.7-9.3); PLATELET COUNT 161 K/mm3 (130-400); RED BLOOD COUNT 4.48 M/mm3 (4.10-5.30); REDCELL DISTRIBUTION WIDTH-CV 13.2 % (11.5-14.5)
[2022-05-02 11:41] LABS: BILIRUBIN,TOTAL 1.6 mg/dL (0.2-1.2)
[2022-05-02 12:17] VITALS: BP 140/85; PULSE 62
[2022-05-03] MEDS ORDERED: CORDARONE200 MG/TAB PO (10:51)
[2022-05-03] MEDS ORDERED: CARDIZEM CD 12120 MG PO (11:06)
== END 2022-05-02 12:19 | disposition home or self-care (01) ==
LOC: COL.ER 10:06
PROVIDERS: Physician Assistant
DX: I48.0 Paroxysmal atrial fibrillation (principal); E66.9 Obesity, unspecified; Z87.891 Personal history of nicotine dependence; Z68.42 Body mass index [BMI] 45.0-49.9, adult; Z79.01 Long term (current) use of anticoagulants; Z79.899 Other long term (current) drug therapy

== ENCOUNTER 2022-05-02 23:56 | Observation (INO) | payer MEDICARE, OTHER ==
[~2022-05-02] VITALS: Ht 172.7 cm; Wt 147.7 kg
[2022-05-03] VITALS (340 sets, daily range): BP systolic 138–166; BP diastolic 67–82; PULSE 55–69; TEMP 97.8–98.4; O2SAT 90–100
[2022-05-03 00:16] LABS: BASO # 0.1 K/mm3 (0.0-0.2); BASO % 0.8 % (0.0-2.0); EOS # 0.3 K/mm3 (0.0-0.7); EOS % 3.4 % (0.0-4.0); GRAN % 54.5 % (42.2-75.2); HEMOGLOBIN 14.6 g/dl (12.5-16.0); LYMPH # 2.4 K/mm3 (1.2-3.4); LYMPH % 32.7 % (20.0-51.0); MEAN CELL VOLUME 88 fl (80.0-100.0); MEAN CORPUSCULAR HEMOGLOBIN 30 pg (27-31); MEAN CORPUSCULAR HGB CONC 34 g/dl (33.0-37.0); MEAN PLATELET VOLUME 9.7 fl (7.4-10.4); MONO # 0.6 K/mm3 (0.1-0.6); MONO % 8.5 % (1.7-9.3); PLATELET COUNT 164 K/mm3 (130-400); RED BLOOD COUNT 4.89 M/mm3 (4.10-5.30); REDCELL DISTRIBUTION WIDTH-CV 13.2 % (11.5-14.5)
[2022-05-03 00:25] LABS: INR 1.3 (0.8-3.0); PROTHROMBIN TIME 15.1 SECONDS (9.7-12.8)
[2022-05-03 00:35] LABS: ALANINE AMINOTRANSFERASE 27 U/L (0-55); ALBUMIN 4.3 gm/dL (3.4-4.8); ALKALINE PHOSPHATASE 80 U/L (40-150); ANION GAP 13 mmol/L (7-16); AST,SGOT 27 U/L (5-34); BILIRUBIN,TOTAL 1.9 mg/dL (0.2-1.2); BLOOD UREA NITROGEN 7 mg/dL (10-20); CALCIUM 10.4 mg/dL (8.4-10.2); CARBON DIOXIDE 24 mmol/L (23-31); CHLORIDE 107 mmol/L (98-107); CREATININE, serum 0.79 mg/dL (0.57-1.11); GLUCOSE 113 mg/dL (70-99); POTASSIUM 3.4 mmol/L (3.5-4.5); SODIUM 144 mmol/L (136-145); TOTAL PROTEIN 7.3 gm/dL (6.2-8.1)
[2022-05-03 00:42] LABS: TROPONIN-I < 0.010 ng/mL (0.00-0.033)
--- NOTE | 2022-05-03 03:17 | NUR ---
PATIENT ARRIVED TO ICU 4 AT 0230. PATIENT ALERT AND ORIENTATED. ASSESSMENT COMPLETE AND CHARTED. PATIENT IN SINUS RHYTHM UPON ARRIVAL. EKG TO CONFIRM. ORIENTATED TO ICU. ZULEIMA BERNARD IN TO SEE PATIENT. ALL QUESTIONS ANSWERED.
--- NOTE | 2022-05-03 06:20 | NUR ---
PATIENT REMAINS IN SR. DENIES NEEDS THIS AM. HAD EVENTFUL NIGHT.
[2022-05-03 07:01] LABS: BASO # 0.1 K/mm3 (0.0-0.2); BASO % 0.9 % (0.0-2.0); EOS # 0.3 K/mm3 (0.0-0.7); GRAN # 3.7 K/mm3 (1.4-6.5); GRAN % 55.7 % (42.2-75.2); HEMATOCRIT 40.2 % (37.0-47.0); HEMOGLOBIN 13.2 g/dl (12.5-16.0); LYMPH # 2.1 K/mm3 (1.2-3.4); MEAN CELL VOLUME 91 fl (80.0-100.0); MEAN CORPUSCULAR HEMOGLOBIN 30 pg (27-31); MEAN CORPUSCULAR HGB CONC 33 g/dl (33.0-37.0); MEAN PLATELET VOLUME 10.2 fl (7.4-10.4); MONO # 0.5 K/mm3 (0.1-0.6); MONO % 8.1 % (1.7-9.3); PLATELET COUNT 160 K/mm3 (130-400); RED BLOOD COUNT 4.43 M/mm3 (4.10-5.30); REDCELL DISTRIBUTION WIDTH-CV 13.2 % (11.5-14.5)
--- NOTE | 2022-05-03 07:05 | NUR ---
Report given to CAREY Carranza
[2022-05-03 07:17] LABS: CALCIUM 9.6 mg/dL (8.4-10.2); CREATININE, serum 0.75 mg/dL (0.57-1.11); POTASSIUM 4.2 mmol/L (3.5-4.5)
--- NOTE | 2022-05-03 07:46 | NUR ---
REPORT RECEIVED FROM CAREY REYES; PATIENT CURRENTLY RESTING IN BED, HEART RATE IS DEBBY WITH RATES IN THE LOW 50S TO HIGH 40S; BLOOD PRESSURE IS SLIGHTLY ELEVATED WITH SYSTOLIC HIGH 155. PATIENT HAS NO FLUIDS OR MEDS RUNNING THROUGH HER PERIPHERAL INT.
--- NOTE | 2022-05-03 07:52 | NUR ---
REPORT RECEIVED FROM CAREY REYES; PATIENT CURRENTLY RESTING IN BED, HEART RATE IS SLIGHTLY LOW WITH RATES IN THE 50S-60S, BLOOD PRESSURES ARE SLIGHTLY ELEVATED WITH SYSTOLIC BEING IN THE 140S-150S. PATIENT IS ON RA AND SATTING HIGH 90S. PATIENT IS ON AMIO AT THE 0.5 RUNNING THROUGH HER PERIPHERAL IV.
[2022-05-03] MEDS ORDERED: CORDARONE200 MG/TAB PO (10:51)
[2022-05-03] MEDS ORDERED: CARDIZEM CD 12120 MG PO (11:06)
--- NOTE | 2022-05-03 12:45 | NUR ---
PATIENT BROUGHT OUT IN WHEELCHAIR AND LEFT WITH [id number]; PATIENT WAS AMBULATORY AND STABLE UPON DISCHARGE. ALL DISCHARGE INSTRUCTIONS WERE GONE OVER AND ALL QUESTIONS WERE ANSWERED. PERIPHERAL INT WAS REMOVED FROM RIGHT FOREARM.
== END 2022-05-03 12:38 | disposition home or self-care (01) ==
LOC: COL.ER 23:56 → ICU 05-03 00:57
PROVIDERS: Emergency Medicine; Student in an Organized Health Care Education/Training Program; ADMIT Internal Medicine
DX: I48.0 Paroxysmal atrial fibrillation (principal); I10 Essential (primary) hypertension; E78.5 Hyperlipidemia, unspecified; K21.9 Gastro-esophageal reflux disease without esophagitis; E03.9 Hypothyroidism, unspecified; E66.9 Obesity, unspecified; G47.33 Obstructive sleep apnea (adult) (pediatric); Z79.899 Other long term (current) drug therapy; Z79.890 Hormone replacement therapy; Z87.891 Personal history of nicotine dependence; Z68.42 Body mass index [BMI] 45.0-49.9, adult; Z86.79 Personal history of other diseases of the circulatory system
CPT/HCPCS: G0378; J0282; J7050; J7060

== ENCOUNTER 2022-05-18 21:10 | Inpatient (IN) | payer MEDICARE, OTHER ==
[~2022-05-18] VITALS: Ht 172.7 cm; Wt 128.1 kg
[~2022-05-18 21:10] MED LIST changes: +CARDIZEM CD 12120 MG PO
[2022-05-18 21:26] LABS: COLLECTION METHOD CLEAN CATCH
[2022-05-18 21:32] LABS: URINE APPEARANCE Clear (CLEAR/HAZY); URINE COLOR Yellow (YELLOW)
[2022-05-18 21:33] LABS: URINE BLOOD Negative (NEGATIVE); URINE GLUCOSE Negative (NEGATIVE); URINE KETONE Negative (NEGATIVE); URINE NITRATE Negative (NEGATIVE); URINE PROTEIN(semi-quant) Negative (NEGATIVE); URINE UROBILINOGEN 0.2 E.U/dL (0.2-1.0)
[2022-05-18 22:03] LABS: BASO # 0.1 K/mm3 (0.0-0.2); EOS # 0.2 K/mm3 (0.0-0.7); EOS % 2.7 % (0.0-4.0); GRAN # 5.2 K/mm3 (1.4-6.5); GRAN % 60.2 % (42.2-75.2); HEMATOCRIT 41.7 % (37.0-47.0); HEMOGLOBIN 14.4 g/dl (12.5-16.0); LYMPH # 2.4 K/mm3 (1.2-3.4); LYMPH % 27.7 % (20.0-51.0); MEAN CELL VOLUME 87 fl (80.0-100.0); MEAN CORPUSCULAR HEMOGLOBIN 30 pg (27-31); MEAN CORPUSCULAR HGB CONC 35 g/dl (33.0-37.0); MEAN PLATELET VOLUME 9.8 fl (7.4-10.4); MONO # 0.7 K/mm3 (0.1-0.6); MONO % 8.2 % (1.7-9.3); PLATELET COUNT 187 K/mm3 (130-400); RED BLOOD COUNT 4.79 M/mm3 (4.10-5.30); REDCELL DISTRIBUTION WIDTH-CV 13.2 % (11.5-14.5)
[2022-05-18 22:21] LABS: ALBUMIN 4.3 gm/dL (3.4-4.8); BILIRUBIN,TOTAL 1.4 mg/dL (0.2-1.2); CALCIUM 10.2 mg/dL (8.4-10.2); CREATININE, serum 0.84 mg/dL (0.57-1.11); INR 1.2 (0.8-3.0); POTASSIUM 3.7 mmol/L (3.5-4.5); PROTHROMBIN TIME 13.8 SECONDS (9.7-12.8); TOTAL PROTEIN 7.2 gm/dL (6.2-8.1)
[2022-05-18 22:28] LABS: TROPONIN-I 0.021 ng/mL (0.00-0.033)
[2022-05-18] MEDS ORDERED: CORDARONE200 MG/TAB PO ×2 (23:38)
[2022-05-18] MEDS ORDERED: CARDIZEM CD 12120 MG PO (23:42)
[2022-05-18 23:45] VITALS: BP 137/69; PULSE 78; TEMP 98.2
[2022-05-19] VITALS (9 sets, daily range): BP systolic 123–156; BP diastolic 44–67; PULSE 50–71; TEMP 97.2–97.9
--- NOTE | 2022-05-19 00:02 | NUR ---
Patient arrived to medical unit from ER at approximately 2335. Alert and oriented x 4. Denies having pain and discomfort. Peripheral INT to left wrist, has Cardizem drip running at 10 ml/hr per orders. Set up on hourly VS per protocol. Telemetry showing A-fib, rate controlled 70s-80s at this time. Patient aware that she will be NPO after midnight, and cardiology will see her in the morning. Voices no questions, needs, or concerns at this time. In bed with call light within reach. Patient aware that staff wants her to call for transfers and going to the bathroom, and voices understanding.
--- NOTE | 2022-05-19 01:17 | NUR ---
Patient's HR 50s. Notified PA. Change cardizem drip from 10 mg/hr to 5. Changed per orders.
--- NOTE | 2022-05-19 02:04 | NUR ---
Patient's HR 53-55, sinus ramu on telemetry. Cardizem drip put on hold.
--- NOTE | 2022-05-19 05:44 | NUR ---
Cardizem drip remains on hold. HR 50-60s. Denies having pain and discomfort. Voices no questions, needs, or concerns at this time. In bed with call light within reach.
[2022-05-19 06:44] LABS: BASO # 0.1 K/mm3 (0.0-0.2); BASO % 0.7 % (0.0-2.0); EOS # 0.2 K/mm3 (0.0-0.7); EOS % 2.7 % (0.0-4.0); GRAN # 4.4 K/mm3 (1.4-6.5); GRAN % 58.5 % (42.2-75.2); HEMATOCRIT 39.7 % (37.0-47.0); HEMOGLOBIN 13.4 g/dl (12.5-16.0); LYMPH # 2.2 K/mm3 (1.2-3.4); LYMPH % 29.4 % (20.0-51.0); MEAN CELL VOLUME 89 fl (80.0-100.0); MEAN CORPUSCULAR HEMOGLOBIN 30 pg (27-31); MEAN CORPUSCULAR HGB CONC 34 g/dl (33.0-37.0); MEAN PLATELET VOLUME 10.2 fl (7.4-10.4); MONO # 0.6 K/mm3 (0.1-0.6); MONO % 8.6 % (1.7-9.3); PLATELET COUNT 186 K/mm3 (130-400); RED BLOOD COUNT 4.47 M/mm3 (4.10-5.30); REDCELL DISTRIBUTION WIDTH-CV 13.5 % (11.5-14.5)
[2022-05-19 06:45] LABS: CALCIUM 9.3 mg/dL (8.4-10.2); CREATININE, serum 0.8 mg/dL (0.57-1.11); POTASSIUM 3.6 mmol/L (3.5-4.5)
--- NOTE | 2022-05-19 08:06 | NUR ---
Patient is resting in bed, alert and orineted x 4, states she had a bad night, right now she feels ok, but when in afib she feels palpitations and uncomfortable. She was using the CPAP at night with 3 L O2. At room air right now. Cardizem drip reported to be sttopped at 2 am this morning. Telemetry in place, NSR. Has been NPO from midnight. Assessment completed, no other needs at this time. Call light within reach.
--- NOTE | 2022-05-19 09:55 | NUR ---
Initial visit; Patient thanked Supervisor Paint for looking in on her, listening to her frustration and anxiety over waiting to have needed heart procedure. Supervisor Paint offered comfort and a blessing. "Michelle" smiled for the first time following the blessing and thanked Supervisor Paint.
--- NOTE | 2022-05-19 11:02 | NUR ---
Fudger met with patient to discuss discharge planning. Patient lives alone in [place] and is recently . Patient goes to [place] for primary care and obtains medications from either [facility] or [facility]. Patient has a CPAP, cane, and walker available at home. Patient only uses the cane if she goes out of the house. Patient reports the walker she has is her late 's. Patient also reports she has grab bars in her bathroom. Patient is independent with ADLS and plans to return home at time of discharge. Patient advised she is working on completing [facility] but has had a lot to catch up on since her passed. Patient has two sons, Ronny and Manoj. Patient advised Manoj lives in the same building as she does. Discharge Plan: Home
[2022-05-19] MEDS ORDERED: CARDIZEM CD 18180 MG PO (11:33)
--- NOTE | 2022-05-19 13:49 | NUR ---
Primary nurse was assisted with [id number] patient care by [employer] student Arianna Wynne and [employer] instructor Berta FORD-JET, RN
--- NOTE | 2022-05-19 14:13 | NUR ---
Patient was provided with discharge information. All questions answered. IV and TELEMETRY discontinued. Pt will be taken to the hospital entrance via wheelchair by THOMAS Jett.
== END 2022-05-19 14:14 | disposition home or self-care (01) | DRG 309 ==
LOC: COL.ER 21:10 → MEDICAL 22:02
PROVIDERS: Nurse Practitioner Primary Care; Physician Assistant; ADMIT Internal Medicine
DX: I48.19 Other persistent atrial fibrillation (principal); Z68.43 Body mass index [BMI] 50.0-59.9, adult; E78.5 Hyperlipidemia, unspecified; K21.9 Gastro-esophageal reflux disease without esophagitis; E03.9 Hypothyroidism, unspecified; E66.9 Obesity, unspecified; G47.33 Obstructive sleep apnea (adult) (pediatric); I10 Essential (primary) hypertension; Z88.5 Allergy status to narcotic agent; Z88.8 Allergy status to other drugs, medicaments and biological substances; Z87.891 Personal history of nicotine dependence; Z79.01 Long term (current) use of anticoagulants

== ENCOUNTER → 2023-06-16 | Emergency (ER) | payer MEDICARE ==
[~2023-06-16] VITALS: Ht 172.7 cm; Wt 149.5 kg
[~2023-06-16] MED LIST changes: +CARDIZEM CD 18180 MG PO; +NORCO 325 MG-51 TAB PO
[2023-06-16 22:22] VITALS: TEMP 98.1
[2023-06-16 23:40] VITALS: BP 144/81; PULSE 80
== END ==
LOC: COL.ER 22:18
DX: M25.511 Pain in right shoulder (principal); M25.512 Pain in left shoulder; Z87.891 Personal history of nicotine dependence
CPT/HCPCS: J2270

== ENCOUNTER 2024-01-04 22:17 | Emergency (ER) | payer MEDICARE, OTHER ==
[~2024-01-04] VITALS: Ht 172.7 cm; Wt 109.1 kg
[2024-01-04] MEDS ORDERED: NS 500 ML IV ONE (22:30)
[2024-01-04 22:42] LABS: BASO # 0.1 K/mm3 (0.0-0.2); BASO % 0.7 % (0.0-2.0); EOS # 0.3 K/mm3 (0.0-0.7); EOS % 3.1 % (0.0-4.0); GRAN # 5.5 K/mm3 (1.4-6.5); GRAN % 61.8 % (42.2-75.2); HEMATOCRIT 40.1 % (37.0-47.0); HEMOGLOBIN 12.8 g/dl (12.5-16.0); LYMPH # 2.2 K/mm3 (1.2-3.4); MEAN CELL VOLUME 88 fl (80.0-100.0); MEAN CORPUSCULAR HEMOGLOBIN 28 pg (27-31); MEAN CORPUSCULAR HGB CONC 32 g/dl (33.0-37.0); MEAN PLATELET VOLUME 9.4 fl (7.4-10.4); MONO # 0.8 K/mm3 (0.1-0.6); MONO % 9.1 % (1.7-9.3); PLATELET COUNT 212 K/mm3 (130-400); RED BLOOD COUNT 4.58 M/mm3 (4.10-5.30); REDCELL DISTRIBUTION WIDTH-CV 13.2 % (11.5-14.5)
[2024-01-04 22:50] LABS: INR 1.2 (0.8-3.0); PROTHROMBIN TIME 12.7 SECONDS (9.7-12.8)
[2024-01-04 22:58] LABS: ALANINE AMINOTRANSFERASE 19 U/L (0-55); ALBUMIN 3.9 g/dL (3.4-4.8); ALKALINE PHOSPHATASE 119 U/L (40-150); ANION GAP 11 mmol/L (7-16); AST,SGOT 20 U/L (5-34); BLOOD UREA NITROGEN 9 mg/dL (10-20); CALCIUM 10.1 mg/dL (8.4-10.2); CHLORIDE 108 mEq/L (98-107); CREATININE, serum 0.85 mg/dL (0.57-1.11); GLUCOSE 150 mg/dL (70-99); POTASSIUM 3.8 mEq/L (3.5-4.5); SODIUM 143 mEq/L (136-145); TOTAL PROTEIN 7.3 g/dl (6.2-8.1)
[2024-01-04 23:11] LABS: TROPONIN-I < 0.010 ng/mL (0.00-0.033)
[2024-01-04 23:21] LABS: BILIRUBIN,TOTAL 0.8 mg/dL (0.2-1.2)
[2024-01-04 23:42] VITALS: O2SAT 94
[2024-01-04 23:42] LABS: COLLECTION METHOD CLEAN CATCH
[2024-01-04 23:47] LABS: URINE APPEARANCE CLEAR (CLEAR/HAZY); URINE BLOOD NEGATIVE (NEGATIVE); URINE COLOR YELLOW (YELLOW); URINE GLUCOSE NEGATIVE (NEGATIVE); URINE KETONE NEGATIVE (NEGATIVE); URINE NITRATE NEGATIVE (NEGATIVE); URINE PROTEIN(semi-quant) NEGATIVE (NEGATIVE); URINE UROBILINOGEN 0.2 E.U/dL (0.2-1.0)
[2024-01-05 00:07] VITALS: BP 148/80; PULSE 95; TEMP 98.6
== END 2024-01-05 00:07 | disposition home or self-care (01) ==
LOC: COL.ER 22:17
PROVIDERS: Nurse Practitioner
DX: I48.91 Unspecified atrial fibrillation (principal); Z79.01 Long term (current) use of anticoagulants
CPT/HCPCS: J7040